=== PATIENT | male | born 1955 | race African-American/Black ===

== ENCOUNTER 2018-03-16 13:40 | Observation (INO) ==
[2018-03-16 16:25] LABS: BASOPHILS % (AUTO) 0.3 % (0.2-1.0); EOSINOPHILS # (AUTO) 0.1 x10^3/uL (0.0-0.2); EOSINOPHILS % (AUTO) 0.9 % (0.9-2.9); HEMATOCRIT 33.2 % (42.0-54.0); HEMOGLOBIN 10.7 g/dL (13.5-18.0); LYMPHOCYTES # (AUTO) 1.9 X10^3/uL (1.3-2.9); LYMPHOCYTES % (AUTO) 27.5 % (21.0-51.0); MEAN CORPUSCULAR HEMOGLOBIN 19.7 pg (27.0-34.0); MEAN CORPUSCULAR HGB CONC 32.3 g/dL (33.0-35.0); MEAN CORPUSCULAR VOLUME 60.9 fL (80.0-100.0); MEAN PLATELET VOLUME 8.8 fL (7.4-11.0); MONOCYTES # (AUTO) 0.6 x10^3/uL (0.3-0.8); MONOCYTES % (AUTO) 8.9 % (0.0-13.0); NEUTROPHILS # (AUTO) 4.2 x10^3/uL (2.2-4.8); NEUTROPHILS % (AUTO) 62.4 % (42.0-75.0); PLATELET COUNT 206 X10^3/uL (150.0-450.0); RED BLOOD COUNT 5.46 X10^6/uL (4.7-6.0); WHITE BLOOD COUNT 6.7 X10^3/uL (3.6-10.0)
--- NOTE | 2018-03-16 16:26 | DR.WEAKNES ---
HPI Time Seen Time Seen by Provider: 03/16/18 15:15 Primary Care Physician Primary Care Physician: LAW TAPIA HPI Comment HPI Comment: He was admitted to the [facility] on 03/12/18 with altered mental status. He was to be placed in a swing bed today but the family would rather have him here, as it is convenient to visit. Prior to 03/12/18, there was some degree of self independent but he needs care now according to his niece. Complaints Chief Complaint:: PTS NIECE STATES THAT PT JUST LEFT [facility] TODAY BECAUSE THEY WERE GETTING READY TO SWING HIM AND SHE BROUGHT HIM HERE BECAUSE SHE WANTED HIM TO "SWING HERE". SHE STATES PT IS STILL WEAK. Source History Provided: Family Member Mode of Arrival Mode of Arrival: Ambulatory Timing Onset of Chief Complaint: 03/12/18 Symptom Onset: Known Context Stroke Symptoms: Ataxia and Weakness of limb PMH PMH Past Medical History: Yes Past Medical History: CVA, Diabetes, GERD and Hyperthyroidism Past Surgical History: No Family History History of Family Medical Conditions: No Social History Does patient currently use any type of tobacco product: No Have you used tobacco products in the last 12 months: Yes Type of Tobacco Use: Cigarettes Does any household member use tobacco: No Alcohol Use: None Do you use any recreational Drugs:: No Lives With: Family Lives Where: Home infectious screening In the last 2 months have you had wt loss of >10#?: NO Have you had fever, night sweats or hemotysis?: No Have you traveled outside the country in the last 6 months?: No Isolation: Standard ROS Review of Systems Constitutional: Weakness Eyes: No Symptoms Reported ENTM: No Symptoms Reported Respiratoy: No Symptoms Reported Cardiovascular: No Symptoms Reported Gastrointestinal/Abdominal: No Symptoms Reported Genitourinary: No Symptoms Reported Neurological: No Symptoms Reported, Pre-existing Deficit, Weakness (right sided ) and Speech Problem Musculoskeletal: No Symptoms Reported Integumentary: No Symptoms Reported Hematologic/Lymphatic: No Symptoms Reported Endocrine: No Symptoms Reported Psychiatric: No Symptoms Reported All Other Systems: Reviewed and Negative PE Vital Signs Vitals: Temperature 98.2 F Pulse Rate 75 Respiratory Rate 20 Blood Pressure 126/71 O2 Sat by Pulse Oximetry 99 General Limitations: No Limitations General Appearance: Alert and In No Apparent Distress Head Head Exam: Normal Inspection, Atraumatic and Normocephalic Eyes Eye exam: Normal Appearance, PERRL and EOMI ENT ENT Exam: Normal Exam and Normal Oropharynx Neck Neck Exam: Normal Inspection, Full ROM and Trachea Midline Chest Chest Inspection: Normal Inspection and Symmetric Chest Wall Rise Respiratory Respiratory Exam: Normal Lung Sounds Bilat Cardiovascular Cardiovascular Exam: Regular Rate, Normal Rhythm, +S1 and +S2 Abdominal Exam Abdominal Exam: Normal Inspection, Normal Bowel Sounds and Soft Extremities Extremities Exam: Normal Inspection Back Back Exam: Normal Inspection Neurologic Neurological Exam: Alert and Other (Rt. hemiparesis ) Speech: Expressive Aphasia ROR Labs Reviewed Result Diagrams: 03/16/18 16:18 03/16/18 16:18 Laboratory: WBC 6.7 X10^3/uL (3.6-10.0) 03/16/18 16:18 RBC 5.46 X10^6/uL (4.7-6.0) 03/16/18 16:18 Hgb 10.7 g/dL (13.5-18.0) L 03/16/18 16:18 Hct 33.2 % (42.0-54.0) L 03/16/18 16:18 MCV 60.9 fL (80.0-100.0) L 03/16/18 16:18 MCH 19.7 pg (27.0-34.0) L 03/16/18 16:18 MCHC 32.3 g/dL (33.0-35.0) L 03/16/18 16:18 RDW 16.0 % (11.6-16.5) 03/16/18 16:18 Plt Count 206 X10^3/uL (150.0-450.0) 03/16/18 16:18 Plt Count Comment Adequate (ADEQUATE) 03/16/18 16:18 MPV 8.8 fL (7.4-11.0) 03/16/18 16:18 Neut % (Auto) 62.4 % (42.0-75.0) 03/16/18 16:18 Lymph % (Auto) 27.5 % (21.0-51.0) 03/16/18 16:18 [place] % (Auto) 8.9 % (0.0-13.0) 03/16/18 16:18 Eos % (Auto) 0.9 % (0.9-2.9) 03/16/18 16:18 Baso % (Auto) 0.3 % (0.2-1.0) 03/16/18 16:18 Neut # (Auto) 4.2 x10^3/uL (2.2-4.8) 03/16/18 16:18 Lymph # (Auto) 1.9 X10^3/uL (1.3-2.9) 03/16/18 16:18 [place] # (Auto) 0.6 x10^3/uL (0.3-0.8) 03/16/18 16:18 Eos # (Auto) 0.1 x10^3/uL (0.0-0.2) 03/16/18 16:18 Baso # (Auto) 0.0 X10^3/uL (0.0-0.1) 03/16/18 16:18 Absolute Nucleated RBC 0.1 /100WBC 03/16/18 16:18 Plt Morphology Comment Normal (NORMAL) 03/16/18 16:18 RBC Morphology Abnormal (NORMAL) 03/16/18 16:18 Hypochromasia 3+ A 03/16/18 16:18 Microcytosis 2+ A 03/16/18 16:18 Sodium 137 mmol/L (136-145) 03/16/18 16:18 Corrected Sodium 142 mmol/L (136-145) 03/16/18 16:18 Potassium 4.3 mmol/L (3.5-5.1) 03/16/18 16:18 Chloride 102 mmol/L (98-107) 03/16/18 16:18 Carbon Dioxide 30.0 mmol/L (21-32) 03/16/18 16:18 BUN 19 mg/dL (7-18) H 03/16/18 16:18 Creatinine 1.87 mg/dL (0.70-1.30) H 03/16/18 16:18 Est GFR (MDRD) Af Amer 47 (>60) L 03/16/18 16:18 Est GFR (MDRD) Non-Af 39 (>60) L 03/16/18 16:18 Glucose 320 mg/dL (65-99) H 03/16/18 16:18 Calcium 8.5 mg/dL (8.5-10.1) 03/16/18 16:18 Corrected Calcium 9.1 mg/dL (8.5-10.1) 03/16/18 16:18 Total Bilirubin 0.20 mg/dL (0.2-1.0) 03/16/18 16:18 AST 19 Units/L (15-37) 03/16/18 16:18 ALT 23 Units/L (12-78) 03/16/18 16:18 Alkaline Phosphatase 92 Units/L (46-116) 03/16/18 16:18 Total Protein 6.5 g/dL (6.4-8.2) 03/16/18 16:18 Albumin 3.2 g/dL (3.4-5.0) L 03/16/18 16:18 Globulin 3.3 g/dL (2.5-4.5) 03/16/18 16:18 Albumin/Globulin Ratio 1.0 Ratio (1.1-2.1) L 03/16/18 16:18 Diagnosis Discharge Problem: Weakness, CVA, old, alterations of sensations, Diabetes mellitus, HTN ( hypertension), Hyperlipidemia, mixed
[2018-03-16 16:36] LABS: ALBUMIN 3.2 g/dL (3.4-5.0); CALCIUM 8.5 mg/dL (8.5-10.1); COR CA(FOR HYPOALB) 9.1 mg/dL (8.5-10.1); CREATININE 1.87 mg/dL (0.70-1.30); TOTAL PROTEIN 6.5 g/dL (6.4-8.2)
[2018-03-16 16:52] LABS: HYPOCHROMASIA 3+; MICROCYTOSIS 2+; PLATELET MORPHOLOGY COMMENT NORMAL (NORMAL)
[2018-03-16] MEDS: COREG TAB 6.25 MG PO SCH (22:32)
[2018-03-16] MEDS: NICOTINE PATCH TD SCH (22:46)
[2018-03-16 22:55] VITALS: BMI 18.8
[2018-03-16] MEDS: HumuLIN R SUBCUT PRN (23:00)
[2018-03-16] MEDS ORDERED: MILK OF MAGNESIA PO PRN (23:04)
[2018-03-17 05:07] LABS: BASOPHILS % (AUTO) 0.3 % (0.2-1.0); EOSINOPHILS # (AUTO) 0.1 x10^3/uL (0.0-0.2); EOSINOPHILS % (AUTO) 1.2 % (0.9-2.9); HEMATOCRIT 31.5 % (42.0-54.0); HEMOGLOBIN 10.3 g/dL (13.5-18.0); LYMPHOCYTES % (AUTO) 33.7 % (21.0-51.0); MEAN CORPUSCULAR HEMOGLOBIN 19.7 pg (27.0-34.0); MEAN CORPUSCULAR HGB CONC 32.6 g/dL (33.0-35.0); MEAN CORPUSCULAR VOLUME 60.3 fL (80.0-100.0); MEAN PLATELET VOLUME 8.6 fL (7.4-11.0); MONOCYTES # (AUTO) 0.6 x10^3/uL (0.3-0.8); MONOCYTES % (AUTO) 9.5 % (0.0-13.0); NEUTROPHILS # (AUTO) 3.2 x10^3/uL (2.2-4.8); NEUTROPHILS % (AUTO) 55.3 % (42.0-75.0); PLATELET COUNT 201 X10^3/uL (150.0-450.0); RED BLOOD COUNT 5.23 X10^6/uL (4.7-6.0); RED CELL DISTRIBUTION WIDTH 16.2 % (11.6-16.5); WHITE BLOOD COUNT 5.8 X10^3/uL (3.6-10.0)
[2018-03-17 05:16] LABS: CALCIUM 8.9 mg/dL (8.5-10.1); CARBON DIOXIDE 33.8 mmol/L (21-32); COR CA(FOR HYPOALB) 9.7 mg/dL (8.5-10.1); CREATININE 1.73 mg/dL (0.70-1.30); TOTAL PROTEIN 6.2 g/dL (6.4-8.2)
[2018-03-17 05:36] LABS: HYPOCHROMASIA 3+; MICROCYTOSIS 2+; OVALOCYTES PRESENT; PLATELET MORPHOLOGY COMMENT NORMAL (NORMAL); TARGET CELLS PRESENT
[2018-03-17] MEDS ORDERED: ZESTRIL TAB 20 MG ONE ×2 (08:31→10:33)
[2018-03-17] MEDS ORDERED: ZESTRIL TAB 20 MG PO SCH (09:00)
[2018-03-17] MEDS: PLAVIX PO SCH (09:30)
[2018-03-17] MEDS: PROTONIX TAB 40 MG PO SCH (09:30)
[2018-03-17] MEDS: COREG TAB 6.25 MG PO SCH ×2 (09:30→20:42)
[2018-03-17] MEDS: COLACE CAP 100 MG PO SCH ×2 (09:30→20:42)
[2018-03-17] MEDS: NORVASC TAB 5 MG PO SCH (09:30)
[2018-03-17] MEDS: ASPIRIN 81 MG CHEWTAB PO SCH (09:30)
[2018-03-17] MEDS: NICOTINE PATCH TD SCH (09:31)
[2018-03-17] MEDS: ACTOS PO SCH (10:46)
[2018-03-17] MEDS: ZESTRIL TAB 20 MG PO SCH (10:46)
[2018-03-17] MEDS: HumuLIN R SUBCUT PRN ×3 (10:51→21:31)
[2018-03-17] MEDS ORDERED: SNACK - Diabetic Appropriate PO SCH (20:00)
[2018-03-18 05:11] LABS: BASOPHILS % (AUTO) 0.3 % (0.2-1.0); EOSINOPHILS # (AUTO) 0.1 x10^3/uL (0.0-0.2); EOSINOPHILS % (AUTO) 0.8 % (0.9-2.9); HEMATOCRIT 31.1 % (42.0-54.0); HEMOGLOBIN 10.1 g/dL (13.5-18.0); LYMPHOCYTES # (AUTO) 1.9 X10^3/uL (1.3-2.9); LYMPHOCYTES % (AUTO) 26.8 % (21.0-51.0); MEAN CORPUSCULAR HEMOGLOBIN 19.6 pg (27.0-34.0); MEAN CORPUSCULAR HGB CONC 32.6 g/dL (33.0-35.0); MEAN CORPUSCULAR VOLUME 60.1 fL (80.0-100.0); MEAN PLATELET VOLUME 8.9 fL (7.4-11.0); MONOCYTES # (AUTO) 0.5 x10^3/uL (0.3-0.8); MONOCYTES % (AUTO) 7.6 % (0.0-13.0); NEUTROPHILS # (AUTO) 4.6 x10^3/uL (2.2-4.8); NEUTROPHILS % (AUTO) 64.5 % (42.0-75.0); PLATELET COUNT 220 X10^3/uL (150.0-450.0); RED BLOOD COUNT 5.18 X10^6/uL (4.7-6.0); RED CELL DISTRIBUTION WIDTH 16.1 % (11.6-16.5); WHITE BLOOD COUNT 7.1 X10^3/uL (3.6-10.0)
[2018-03-18 05:24] LABS: ALANINE AMINOTRANSFERASE 35 Units/L (12-78); ALKALINE PHOSPHATASE 98 Units/L (46-116); ASPARTATE AMINO TRANSFERASE 33 Units/L (15-37); BLOOD UREA NITROGEN 21 mg/dL (7-18); CALCIUM 8.6 mg/dL (8.5-10.1); CARBON DIOXIDE 32.4 mmol/L (21-32); CHLORIDE 106 mmol/L (98-107); COR CA(FOR HYPOALB) 9.4 mg/dL (8.5-10.1); CREATININE 1.72 mg/dL (0.70-1.30); SODIUM 143 mmol/L (136-145); TOTAL PROTEIN 6.2 g/dL (6.4-8.2); eGFR NON BLACK RACES 43 (>60)
[2018-03-18 05:30] LABS: PLATELET MORPHOLOGY COMMENT NORMAL (NORMAL)
[2018-03-18 05:31] LABS: HYPOCHROMASIA 3+; MICROCYTOSIS 2+; OVALOCYTES PRESENT
[2018-03-18] MEDS ORDERED: ZESTRIL TAB 20 MG ONE (07:37)
[2018-03-18] MEDS: ASPIRIN 81 MG CHEWTAB PO SCH (08:32)
[2018-03-18] MEDS: ACTOS PO SCH (08:32)
[2018-03-18] MEDS: COLACE CAP 100 MG PO SCH (08:32)
[2018-03-18] MEDS: NICOTINE PATCH TD SCH (08:33)
[2018-03-18] MEDS: PLAVIX PO SCH (08:33)
[2018-03-18] MEDS: COREG TAB 6.25 MG PO SCH (08:33)
[2018-03-18] MEDS: NORVASC TAB 5 MG PO SCH (08:33)
[2018-03-18] MEDS: ZESTRIL TAB 20 MG PO SCH (08:34)
[2018-03-18] MEDS: PROTONIX TAB 40 MG PO SCH (08:34)
[2018-03-18] MEDS ORDERED: COREG TAB 6.25 MG PO SCH (10:00)
[2018-03-18 10:22] VITALS: BP 194/91
[2018-03-18] MEDS: HumuLIN R SUBCUT PRN (11:36)
== END 2018-03-18 11:00 | disposition home or self-care (01) ==
LOC: ER 13:40 → MED/SURG 13:40
PROVIDERS: ADMIT Obstetrics & Gynecology Obstetrics; ATTEND Obstetrics & Gynecology Obstetrics
DX: I63.8 Other cerebral infarction; R53.1 Weakness; R26.89 Other abnormalities of gait and mobility; Z72.0 Tobacco use; E11.65 Type 2 diabetes mellitus with hyperglycemia; R41.82 Altered mental status, unspecified; R20.9 Unspecified disturbances of skin sensation; E78.2 Mixed hyperlipidemia; R47.1 Dysarthria and anarthria; K21.9 Gastro-esophageal reflux disease without esophagitis
CPT/HCPCS: 36415; 80053; 85025; 92523; 96365; 97112; 97161; 97167; 99282; 99284; A4216; A4222; G0378; J1815

== ENCOUNTER 2018-03-18 11:30 | Inpatient (IN) ==
[2018-03-18] MEDS: HumuLIN R SUBCUT PRN ×2 (16:47→21:34)
[2018-03-18] MEDS ORDERED: SNACK - Diabetic Appropriate PO SCH (20:00)
[2018-03-18] MEDS ORDERED: NICOTINE PATCH TD ONE (20:56)
[2018-03-18] MEDS: COREG TAB 6.25 MG PO SCH (21:30)
[2018-03-18] MEDS: COLACE CAP 100 MG PO SCH (21:31)
[2018-03-18] MEDS: NICOTINE PATCH TD SCH (21:32)
[2018-03-18] MEDS: SNACK - Diabetic Appropriate PO SCH (21:34)
[2018-03-19 05:16] LABS: BASOPHILS % (AUTO) 0.2 % (0.2-1.0); EOSINOPHILS # (AUTO) 0.1 x10^3/uL (0.0-0.2); HEMOGLOBIN 9.4 g/dL (13.5-18.0); LYMPHOCYTES # (AUTO) 1.9 X10^3/uL (1.3-2.9); MEAN CORPUSCULAR HEMOGLOBIN 19.6 pg (27.0-34.0); MEAN CORPUSCULAR HGB CONC 32.5 g/dL (33.0-35.0); MEAN CORPUSCULAR VOLUME 60.3 fL (80.0-100.0); MEAN PLATELET VOLUME 8.8 fL (7.4-11.0); MONOCYTES # (AUTO) 0.5 x10^3/uL (0.3-0.8); MONOCYTES % (AUTO) 7.6 % (0.0-13.0); NEUTROPHILS % (AUTO) 62.2 % (42.0-75.0); PLATELET COUNT 203 X10^3/uL (150.0-450.0); RED BLOOD COUNT 4.81 X10^6/uL (4.7-6.0); RED CELL DISTRIBUTION WIDTH 16.3 % (11.6-16.5); WHITE BLOOD COUNT 6.4 X10^3/uL (3.6-10.0)
[2018-03-19 05:29] LABS: ALBUMIN 2.9 g/dL (3.4-5.0); CALCIUM 8.5 mg/dL (8.5-10.1); CARBON DIOXIDE 30.9 mmol/L (21-32); COR CA(FOR HYPOALB) 9.4 mg/dL (8.5-10.1); CREATININE 1.88 mg/dL (0.70-1.30); TOTAL PROTEIN 5.9 g/dL (6.4-8.2)
[2018-03-19] MEDS: HumuLIN R SUBCUT PRN ×3 (05:44→22:16)
[2018-03-19 06:45] LABS: ANISOCYTOSIS 1+; HYPOCHROMASIA 2+; PLATELET MORPHOLOGY COMMENT NORMAL (NORMAL); POIKILOCYTOSIS 1+
[2018-03-19] MEDS: ACTOS PO SCH (08:00)
[2018-03-19] MEDS: PLAVIX PO SCH (08:00)
[2018-03-19] MEDS: ASPIRIN 81 MG CHEWTAB PO SCH (08:00)
[2018-03-19] MEDS: NICOTINE PATCH TD SCH (08:00)
[2018-03-19] MEDS: ZESTRIL TAB 20 MG PO SCH (08:00)
[2018-03-19] MEDS: PROTONIX TAB 40 MG PO SCH (08:00)
[2018-03-19] MEDS: COREG TAB 6.25 MG PO SCH ×2 (08:00→22:13)
[2018-03-19] MEDS: NORVASC TAB 5 MG PO SCH (08:00)
[2018-03-19] MEDS ORDERED: ZESTRIL TAB 20 MG ONE (08:00)
[2018-03-19] MEDS: COLACE CAP 100 MG PO SCH ×2 (08:00→22:15)
[2018-03-19] MEDS ORDERED: INVOKANA PO SCH ×2 (09:00→09:15)
[2018-03-19] MEDS: MILK OF MAGNESIA PO PRN (22:13)
[2018-03-19] MEDS: SNACK - Diabetic Appropriate PO SCH (22:15)
[2018-03-20 05:46] LABS: BASOPHILS % (AUTO) 0.2 % (0.2-1.0); EOSINOPHILS # (AUTO) 0.1 x10^3/uL (0.0-0.2); EOSINOPHILS % (AUTO) 0.8 % (0.9-2.9); HEMATOCRIT 29.3 % (42.0-54.0); HEMOGLOBIN 9.6 g/dL (13.5-18.0); LYMPHOCYTES # (AUTO) 1.8 X10^3/uL (1.3-2.9); LYMPHOCYTES % (AUTO) 21.6 % (21.0-51.0); MEAN CORPUSCULAR HEMOGLOBIN 19.6 pg (27.0-34.0); MEAN CORPUSCULAR HGB CONC 32.8 g/dL (33.0-35.0); MEAN CORPUSCULAR VOLUME 59.9 fL (80.0-100.0); MEAN PLATELET VOLUME 8.9 fL (7.4-11.0); MONOCYTES # (AUTO) 0.7 x10^3/uL (0.3-0.8); MONOCYTES % (AUTO) 7.9 % (0.0-13.0); NEUTROPHILS # (AUTO) 5.8 x10^3/uL (2.2-4.8); NEUTROPHILS % (AUTO) 69.5 % (42.0-75.0); PLATELET COUNT 209 X10^3/uL (150.0-450.0); RED BLOOD COUNT 4.89 X10^6/uL (4.7-6.0); RED CELL DISTRIBUTION WIDTH 16.2 % (11.6-16.5); WHITE BLOOD COUNT 8.3 X10^3/uL (3.6-10.0)
[2018-03-20] MEDS: HumuLIN R SUBCUT PRN ×3 (05:56→21:24)
[2018-03-20 06:15] LABS: ALBUMIN 2.8 g/dL (3.4-5.0); CALCIUM 8.4 mg/dL (8.5-10.1); CARBON DIOXIDE 33.4 mmol/L (21-32); COR CA(FOR HYPOALB) 9.4 mg/dL (8.5-10.1); CREATININE 1.84 mg/dL (0.70-1.30)
[2018-03-20 06:21] LABS: HYPOCHROMASIA 3+; MICROCYTOSIS 3+; PLATELET MORPHOLOGY COMMENT NORMAL (NORMAL)
[2018-03-20] MEDS ORDERED: ZESTRIL TAB 20 MG ONE (07:53)
[2018-03-20] MEDS: ACTOS PO SCH (08:42)
[2018-03-20] MEDS: COLACE CAP 100 MG PO SCH ×2 (08:42→21:26)
[2018-03-20] MEDS: ZESTRIL TAB 20 MG PO SCH (08:43)
[2018-03-20] MEDS: PROTONIX TAB 40 MG PO SCH (08:43)
[2018-03-20] MEDS: ASPIRIN 81 MG CHEWTAB PO SCH (08:44)
[2018-03-20] MEDS: NORVASC TAB 5 MG PO SCH (08:45)
[2018-03-20] MEDS: COREG TAB 6.25 MG PO SCH ×2 (08:45→21:26)
[2018-03-20] MEDS: INVOKANA PO SCH (08:49)
[2018-03-20] MEDS: NICOTINE PATCH TD SCH (08:50)
[2018-03-20] MEDS: PLAVIX PO SCH (08:52)
[2018-03-20] MEDS: SNACK - Diabetic Appropriate PO SCH (20:29)
[2018-03-20] MEDS: MILK OF MAGNESIA PO PRN (21:24)
[2018-03-21] MEDS: HumuLIN R SUBCUT PRN ×3 (06:13→17:21)
[2018-03-21] MEDS ORDERED: ZESTRIL TAB 20 MG ONE (07:36)
[2018-03-21] MEDS: COREG TAB 6.25 MG PO SCH ×2 (08:56→21:33)
[2018-03-21] MEDS: PROTONIX TAB 40 MG PO SCH (08:56)
[2018-03-21] MEDS: ASPIRIN 81 MG CHEWTAB PO SCH (08:57)
[2018-03-21] MEDS: ZESTRIL TAB 20 MG PO SCH (08:57)
[2018-03-21] MEDS: NORVASC TAB 5 MG PO SCH (08:57)
[2018-03-21] MEDS: COLACE CAP 100 MG PO SCH ×2 (08:57→21:33)
[2018-03-21] MEDS: ACTOS PO SCH (08:57)
[2018-03-21] MEDS: PLAVIX PO SCH (08:58)
[2018-03-21] MEDS: NICOTINE PATCH TD SCH (09:01)
[2018-03-21] MEDS: INVOKANA PO SCH (09:02)
--- NOTE | 2018-03-21 19:51 | RAD ---
HISTORY: Fall, right hip pain Study: Two-view right hip Comparison: No priors Findings: A single frontal view of the pelvis demonstrates the pelvic ring to be intact. No evidence for acute cortical disruption or dislocation of the hip can be observed. Frog leg views of the hip fails to d emonstrate evidence for fracture or significant joint abnormality. Impression: 1. Negative exam. Reported By:
[2018-03-21] MEDS: SNACK - Diabetic Appropriate PO SCH (21:33)
[2018-03-22] MEDS: HumuLIN R SUBCUT PRN ×3 (05:57→20:41)
[2018-03-22] MEDS ORDERED: ZESTRIL TAB 20 MG ONE (07:51)
[2018-03-22] MEDS: ACTOS PO SCH (09:00)
[2018-03-22] MEDS: COLACE CAP 100 MG PO SCH ×2 (09:01→20:41)
[2018-03-22] MEDS: ASPIRIN 81 MG CHEWTAB PO SCH (09:01)
[2018-03-22] MEDS: INVOKANA PO SCH (09:01)
[2018-03-22] MEDS: COREG TAB 6.25 MG PO SCH ×2 (09:01→20:40)
[2018-03-22] MEDS: NICOTINE PATCH TD SCH (09:01)
[2018-03-22] MEDS: NORVASC TAB 5 MG PO SCH (09:02)
[2018-03-22] MEDS: ZESTRIL TAB 20 MG PO SCH (09:03)
[2018-03-22] MEDS: PROTONIX TAB 40 MG PO SCH (09:03)
[2018-03-22] MEDS: PLAVIX PO SCH (09:03)
[2018-03-22] MEDS: SNACK - Diabetic Appropriate PO SCH (20:41)
[2018-03-23 05:31] LABS: BASOPHILS % (AUTO) 0.3 % (0.2-1.0); EOSINOPHILS % (AUTO) 0.3 % (0.9-2.9); HEMATOCRIT 28.4 % (42.0-54.0); HEMOGLOBIN 9.3 g/dL (13.5-18.0); LYMPHOCYTES # (AUTO) 1.6 X10^3/uL (1.3-2.9); LYMPHOCYTES % (AUTO) 15.8 % (21.0-51.0); MEAN CORPUSCULAR HEMOGLOBIN 19.6 pg (27.0-34.0); MEAN CORPUSCULAR HGB CONC 32.8 g/dL (33.0-35.0); MEAN CORPUSCULAR VOLUME 59.7 fL (80.0-100.0); MONOCYTES # (AUTO) 0.5 x10^3/uL (0.3-0.8); MONOCYTES % (AUTO) 5.3 % (0.0-13.0); NEUTROPHILS % (AUTO) 78.3 % (42.0-75.0); PLATELET COUNT 204 X10^3/uL (150.0-450.0); RED BLOOD COUNT 4.76 X10^6/uL (4.7-6.0); RED CELL DISTRIBUTION WIDTH 16.2 % (11.6-16.5); WHITE BLOOD COUNT 10.2 X10^3/uL (3.6-10.0)
[2018-03-23 05:38] LABS: ALBUMIN 2.7 g/dL (3.4-5.0); CALCIUM 8.9 mg/dL (8.5-10.1); CARBON DIOXIDE 24.7 mmol/L (21-32); COR CA(FOR HYPOALB) 9.9 mg/dL (8.5-10.1); CREATININE 2.55 mg/dL (0.70-1.30); TOTAL PROTEIN 6.5 g/dL (6.4-8.2)
[2018-03-23 05:53] LABS: HYPOCHROMASIA 2+; MICROCYTOSIS 3+; PLATELET MORPHOLOGY COMMENT NORMAL (NORMAL)
[2018-03-23 05:54] LABS: OVALOCYTES PRESENT; POIKILOCYTOSIS 1+
[2018-03-23] MEDS: HumuLIN R SUBCUT PRN ×3 (06:38→17:08)
[2018-03-23] MEDS ORDERED: ZESTRIL TAB 20 MG ONE (08:23)
[2018-03-23] MEDS: ZESTRIL TAB 20 MG PO SCH (09:44)
[2018-03-23] MEDS: ACTOS PO SCH (09:44)
[2018-03-23] MEDS: COREG TAB 6.25 MG PO SCH ×2 (09:44→21:07)
[2018-03-23] MEDS: COLACE CAP 100 MG PO SCH ×2 (09:44→21:07)
[2018-03-23] MEDS: PROTONIX TAB 40 MG PO SCH (09:45)
[2018-03-23] MEDS: PLAVIX PO SCH (09:45)
[2018-03-23] MEDS: NORVASC TAB 5 MG PO SCH (09:45)
[2018-03-23] MEDS: NICOTINE PATCH TD SCH (09:45)
[2018-03-23] MEDS: ASPIRIN 81 MG CHEWTAB PO SCH (09:45)
[2018-03-23] MEDS: INVOKANA PO SCH (09:50)
[2018-03-23] MEDS ORDERED: NS 1000 ML 1,000 ML IV ONE (13:59)
[2018-03-23] MEDS: SNACK - Diabetic Appropriate PO SCH (21:07)
[2018-03-24 05:16] LABS: CALCIUM 8.9 mg/dL (8.5-10.1); CARBON DIOXIDE 23.8 mmol/L (21-32); CREATININE 2.37 mg/dL (0.70-1.30)
[2018-03-24] MEDS ORDERED: ZESTRIL TAB 20 MG ONE (08:17)
[2018-03-24] MEDS: NORVASC TAB 5 MG PO SCH (08:20)
[2018-03-24] MEDS: ACTOS PO SCH (08:20)
[2018-03-24] MEDS: ASPIRIN 81 MG CHEWTAB PO SCH (08:20)
[2018-03-24] MEDS: COLACE CAP 100 MG PO SCH ×2 (08:20→20:18)
[2018-03-24] MEDS: PROTONIX TAB 40 MG PO SCH (08:21)
[2018-03-24] MEDS: NICOTINE PATCH TD SCH (08:21)
[2018-03-24] MEDS: INVOKANA PO SCH (08:21)
[2018-03-24] MEDS: ZESTRIL TAB 20 MG PO SCH (08:21)
[2018-03-24] MEDS: COREG TAB 6.25 MG PO SCH ×2 (08:21→20:18)
[2018-03-24] MEDS: PLAVIX PO SCH (08:21)
[2018-03-24] MEDS ORDERED: LR 1000 ML IV 1,000 ML IV ONE (09:14)
[2018-03-24] MEDS: HumuLIN R SUBCUT PRN ×2 (12:15→17:09)
[2018-03-24] MEDS: SNACK - Diabetic Appropriate PO SCH (20:18)
[2018-03-25 05:39] LABS: ALBUMIN 2.5 g/dL (3.4-5.0); CALCIUM 8.7 mg/dL (8.5-10.1); CARBON DIOXIDE 25.7 mmol/L (21-32); COR CA(FOR HYPOALB) 9.9 mg/dL (8.5-10.1); CREATININE 2.31 mg/dL (0.70-1.30); TOTAL PROTEIN 6.7 g/dL (6.4-8.2)
[2018-03-25] MEDS ORDERED: ZESTRIL TAB 20 MG ONE (08:08)
[2018-03-25] MEDS: COLACE CAP 100 MG PO SCH ×2 (08:20→20:05)
[2018-03-25] MEDS: ACTOS PO SCH (08:20)
[2018-03-25] MEDS: NORVASC TAB 5 MG PO SCH (08:20)
[2018-03-25] MEDS: COREG TAB 6.25 MG PO SCH ×2 (08:20→20:05)
[2018-03-25] MEDS: PROTONIX TAB 40 MG PO SCH (08:21)
[2018-03-25] MEDS: NICOTINE PATCH TD SCH (08:21)
[2018-03-25] MEDS: PLAVIX PO SCH (08:21)
[2018-03-25] MEDS: ZESTRIL TAB 20 MG PO SCH (08:21)
[2018-03-25] MEDS: ASPIRIN 81 MG CHEWTAB PO SCH (08:21)
[2018-03-25] MEDS: JANUVIA PO SCH (10:46)
[2018-03-25] MEDS: HumuLIN R SUBCUT PRN ×3 (12:02→20:05)
[2018-03-25] MEDS: SNACK - Diabetic Appropriate PO SCH (20:04)
[2018-03-26 05:52] LABS: ALBUMIN 2.7 g/dL (3.4-5.0); CALCIUM 8.8 mg/dL (8.5-10.1); COR CA(FOR HYPOALB) 9.8 mg/dL (8.5-10.1); CREATININE 2.14 mg/dL (0.70-1.30); TOTAL PROTEIN 6.4 g/dL (6.4-8.2)
[2018-03-26] MEDS ORDERED: ZESTRIL TAB 20 MG ONE (08:43)
[2018-03-26] MEDS: COLACE CAP 100 MG PO SCH ×2 (08:56→20:26)
[2018-03-26] MEDS: NORVASC TAB 5 MG PO SCH (08:56)
[2018-03-26] MEDS: PROTONIX TAB 40 MG PO SCH (08:56)
[2018-03-26] MEDS: ZESTRIL TAB 20 MG PO SCH (08:57)
[2018-03-26] MEDS: JANUVIA PO SCH (08:57)
[2018-03-26] MEDS: NICOTINE PATCH TD SCH (08:57)
[2018-03-26] MEDS: COREG TAB 6.25 MG PO SCH ×2 (08:57→20:26)
[2018-03-26] MEDS: ASPIRIN 81 MG CHEWTAB PO SCH (08:57)
[2018-03-26] MEDS: ACTOS PO SCH (08:57)
[2018-03-26] MEDS: PLAVIX PO SCH (08:57)
[2018-03-26] MEDS: HumuLIN R SUBCUT PRN ×3 (11:31→20:26)
[2018-03-26] MEDS: SNACK - Diabetic Appropriate PO SCH (20:25)
[2018-03-27 04:48] LABS: ALBUMIN 2.7 g/dL (3.4-5.0); CALCIUM 8.5 mg/dL (8.5-10.1); CARBON DIOXIDE 28.7 mmol/L (21-32); COR CA(FOR HYPOALB) 9.5 mg/dL (8.5-10.1); CREATININE 2.19 mg/dL (0.70-1.30); TOTAL PROTEIN 6.1 g/dL (6.4-8.2)
[2018-03-27] MEDS: HumuLIN R SUBCUT PRN ×4 (05:48→21:09)
[2018-03-27] MEDS ORDERED: ZESTRIL TAB 20 MG ONE (09:42)
[2018-03-27] MEDS: ZESTRIL TAB 20 MG PO SCH (10:17)
[2018-03-27] MEDS: ASPIRIN 81 MG CHEWTAB PO SCH (10:18)
[2018-03-27] MEDS: PLAVIX PO SCH (10:18)
[2018-03-27] MEDS: COLACE CAP 100 MG PO SCH ×2 (10:18→20:24)
[2018-03-27] MEDS: COREG TAB 6.25 MG PO SCH ×2 (10:18→20:25)
[2018-03-27] MEDS: NORVASC TAB 5 MG PO SCH (10:18)
[2018-03-27] MEDS: JANUVIA PO SCH (10:18)
[2018-03-27] MEDS: PROTONIX TAB 40 MG PO SCH (10:18)
[2018-03-27] MEDS: ACTOS PO SCH (10:18)
[2018-03-27] MEDS: NICOTINE PATCH TD SCH (10:18)
[2018-03-27] MEDS: SNACK - Diabetic Appropriate PO SCH (20:12)
[2018-03-28] MEDS: HumuLIN R SUBCUT PRN ×2 (06:20→12:30)
[2018-03-28] MEDS ORDERED: ZESTRIL TAB 20 MG ONE (08:47)
[2018-03-28] MEDS: COLACE CAP 100 MG PO SCH ×2 (09:34→21:43)
[2018-03-28] MEDS: ASPIRIN 81 MG CHEWTAB PO SCH (09:34)
[2018-03-28] MEDS: ACTOS PO SCH (09:34)
[2018-03-28] MEDS: NICOTINE PATCH TD SCH (09:35)
[2018-03-28] MEDS: JANUVIA PO SCH (09:35)
[2018-03-28] MEDS: COREG TAB 6.25 MG PO SCH ×2 (09:35→22:15)
[2018-03-28] MEDS: ZESTRIL TAB 20 MG PO SCH (09:36)
[2018-03-28] MEDS: NORVASC TAB 5 MG PO SCH ×2 (09:36→14:19)
[2018-03-28] MEDS: PROTONIX TAB 40 MG PO SCH (09:36)
[2018-03-28] MEDS: PLAVIX PO SCH (09:36)
[2018-03-28] MEDS: PATIENT'S HOME MEDICATION (Precose 100 MG) PO SCH ×2 (14:19→18:20)
[2018-03-28] MEDS: SNACK - Diabetic Appropriate PO SCH (21:41)
[2018-03-29] MEDS: PATIENT'S HOME MEDICATION (Precose 100 MG) PO SCH ×3 (05:37→16:57)
[2018-03-29] MEDS ORDERED: ZESTRIL TAB 20 MG ONE ×2 (08:16→08:30)
[2018-03-29] MEDS: COREG TAB 6.25 MG PO SCH ×2 (08:21→20:06)
[2018-03-29] MEDS: PROTONIX TAB 40 MG PO SCH (08:21)
[2018-03-29] MEDS: ASPIRIN 81 MG CHEWTAB PO SCH (08:21)
[2018-03-29] MEDS: ACTOS PO SCH (08:21)
[2018-03-29] MEDS: ZESTRIL TAB 20 MG PO SCH (08:22)
[2018-03-29] MEDS: COLACE CAP 100 MG PO SCH ×2 (08:22→20:06)
[2018-03-29] MEDS: JANUVIA PO SCH (08:22)
[2018-03-29] MEDS: NORVASC TAB 5 MG PO SCH (08:22)
[2018-03-29] MEDS: NICOTINE PATCH TD SCH (08:23)
[2018-03-29] MEDS: PLAVIX PO SCH (08:23)
[2018-03-29] MEDS: HumuLIN R SUBCUT PRN ×2 (11:48→17:34)
[2018-03-29] MEDS: SNACK - Diabetic Appropriate PO SCH (20:06)
[2018-03-30] MEDS: PATIENT'S HOME MEDICATION (Precose 100 MG) PO SCH (05:31)
[2018-03-30] MEDS ORDERED: ZESTRIL TAB 20 MG ONE (08:29)
[2018-03-30] MEDS: NICOTINE PATCH TD SCH (10:34)
[2018-03-30] MEDS: PROTONIX TAB 40 MG PO SCH (10:35)
[2018-03-30] MEDS: NORVASC TAB 5 MG PO SCH (10:35)
[2018-03-30] MEDS: COREG TAB 6.25 MG PO SCH ×2 (10:35→20:38)
[2018-03-30] MEDS: ACTOS PO SCH (10:36)
[2018-03-30] MEDS: ASPIRIN 81 MG CHEWTAB PO SCH (10:36)
[2018-03-30] MEDS: ZESTRIL TAB 20 MG PO SCH (10:36)
[2018-03-30] MEDS: COLACE CAP 100 MG PO SCH ×2 (10:36→20:38)
[2018-03-30] MEDS: PLAVIX PO SCH (10:37)
[2018-03-30] MEDS: JANUVIA PO SCH (10:37)
[2018-03-30] MEDS: HumuLIN R SUBCUT PRN ×3 (12:15→20:39)
[2018-03-30] MEDS: SNACK - Diabetic Appropriate PO SCH (20:38)
[2018-03-30] MEDS: MILK OF MAGNESIA PO PRN (20:38)
[2018-03-31] MEDS ORDERED: ZESTRIL TAB 20 MG ONE (09:34)
[2018-03-31] MEDS: ACTOS PO SCH (09:51)
[2018-03-31] MEDS: NICOTINE PATCH TD SCH (09:52)
[2018-03-31] MEDS: ASPIRIN 81 MG CHEWTAB PO SCH (09:52)
[2018-03-31] MEDS: JANUVIA PO SCH (09:52)
[2018-03-31] MEDS: COREG TAB 6.25 MG PO SCH ×2 (09:52→20:15)
[2018-03-31] MEDS: PROTONIX TAB 40 MG PO SCH (09:52)
[2018-03-31] MEDS: COLACE CAP 100 MG PO SCH ×2 (09:52→20:13)
[2018-03-31] MEDS: NORVASC TAB 5 MG PO SCH (09:53)
[2018-03-31] MEDS: ZESTRIL TAB 20 MG PO SCH (09:53)
[2018-03-31] MEDS: PLAVIX PO SCH (10:25)
[2018-03-31] MEDS: HumuLIN R SUBCUT PRN ×3 (11:54→20:14)
[2018-04-01] MEDS: SNACK - Diabetic Appropriate PO SCH (05:15)
[2018-04-01] MEDS: HumuLIN R SUBCUT PRN ×2 (05:57→11:37)
[2018-04-01] MEDS ORDERED: ZESTRIL TAB 20 MG ONE (08:57)
[2018-04-01] MEDS: NICOTINE PATCH TD SCH (08:59)
[2018-04-01] MEDS: ACTOS PO SCH (09:00)
[2018-04-01] MEDS: COREG TAB 6.25 MG PO SCH (09:01)
[2018-04-01] MEDS: COLACE CAP 100 MG PO SCH (09:01)
[2018-04-01] MEDS: ASPIRIN 81 MG CHEWTAB PO SCH (09:01)
[2018-04-01] MEDS: JANUVIA PO SCH (09:02)
[2018-04-01] MEDS: PLAVIX PO SCH (09:03)
[2018-04-01] MEDS: ZESTRIL TAB 20 MG PO SCH (09:03)
[2018-04-01] MEDS: PROTONIX TAB 40 MG PO SCH (09:03)
[2018-04-01] MEDS: NORVASC TAB 5 MG PO SCH (09:03)
[2018-04-01 10:25] VITALS: BP 149/86
== END 2018-04-01 11:53 | DRG 949 ==
LOC: MED/SURG 11:30
PROVIDERS: ADMIT Obstetrics & Gynecology Obstetrics; ATTEND Obstetrics & Gynecology Obstetrics
DX: E78.2 Mixed hyperlipidemia; R20.9 Unspecified disturbances of skin sensation; Z51.89 Encounter for other specified aftercare; K21.9 Gastro-esophageal reflux disease without esophagitis; I10 Essential (primary) hypertension; R41.82 Altered mental status, unspecified; R53.1 Weakness; Z72.0 Tobacco use; E11.65 Type 2 diabetes mellitus with hyperglycemia; R47.1 Dysarthria and anarthria; R26.89 Other abnormalities of gait and mobility; I63.8 Other cerebral infarction; M25.551 Pain in right hip
CPT/HCPCS: 36415; 73501; 80048; 80053; 85025; 92507; 92523; 97110; 97112; 97116; 97161; 97167; 97530; 97535; 97760; A4216; A4222; J1815; J7030; J7120

== ENCOUNTER 2018-05-28 11:17 | Inpatient (IN) ==
[2018-05-28] MEDS ORDERED: NS 1000 ML 1,000 ML ONE ×3 (11:35→18:01)
[2018-05-28] MEDS ORDERED: NS 1000 ML 1,000 ML IV ONE ×3 (11:58→12:41)
--- NOTE | 2018-05-28 11:59 | DR.HYPOGLY ---
HPI Time Seen Time Seen by Provider: 05/28/18 11:44 HPI Comment HPI Comment: HERE FROM RETIREMENT WITH CONFUSION, FREQUENT FALLS AND ELEVATED BLOOD GLUCOSE. Complaint Chief Complaint Doctors Comments: RETIREMENT AT THIS FACILITY IS HERE WITH ELEVATED BLOOD GLUCOSE AND CONFUSION. Nurses notes reviewed Nurses Notes Review: Yes Source History Provided: Care Home Mode of Arrival Mode of Arrival: Stretcher Timing Came on: Suddenly Duration Duration: Since Onset Duration: Hours Context [place]: Confused Symptoms: Generalized weakness History of: Diabetes PMH PMH Past Surgical History: No Family History Family Medical History: Diabetes Mellitus and Hypertension Social History Do you use any recreational Drugs:: No ROS Review of Systems Constitutional: Weakness and Fatigue Eyes: Eye Pain; negative Discharge ENTM: No Symptoms Reported Respiratoy: No Symptoms Reported Cardiovascular: No Symptoms Reported Gastrointestinal/Abdominal: Nausea Genitourinary: No Symptoms Reported Neurological: Weakness Musculoskeletal: Muscle Pain Integumentary: Dryness Hematologic/Lymphatic: No Symptoms Reported Endocrine: Increased Thirst and Increased Urine Psychiatric: No Symptoms Reported All Other Systems: Reviewed and Negative PE Vital Signs Vitals: Temperature 98.2 F Pulse Rate [Right Brachial] 80 Pulse Rate 70 Respiratory Rate 18 Blood Pressure [Right Arm] 177/86 Blood Pressure [Left Arm] 99/56 Blood Pressure 125/64 O2 Sat by Pulse Oximetry 100 General Limitations: Altered Mental Status General Appearance: Alert and In No Apparent Distress Eyes Eye exam: negative Conjunctival Injection Pupils: Regular, Round: Bilateral and Reactive: Bilateral ENT ENT Exam: Normal External Ear Exam Nose Exam: Normal Nose Exam Mouth Exam: Normal Inspection Throat Exam: Tonsillar Exudate; negative Tonsillar Erythema Neck Neck Exam: Trachea Midline; negative Tenderness and Meningismus Chest Chest Inspection: Symmetric Chest Wall Rise Respiratory Respiratory Exam: Normal Lung Sounds Bilat Respiratory Exam: Bilateral: Rhonchi and Lower: Rhonchi Cardiovascular Cardiovascular Exam: Regular Rate and Normal Rhythm Abdominal Exam Abdominal Exam: Normal Bowel Sounds and Soft; negative Tenderness Extremities Extremities Exam: Normal Inspection Back Back Exam: Normal Inspection Neurologic Neurological Exam: Alert Cranial Nerve Exam: Gag reflex (XI): Normal Psychiatric Psychiatric Exam: Normal Affect and Normal Mood Skin Skin Exam: Dry MDM Differential diagnosis Differential diagnosis: Sepsis (HYPERGLYCEMIA, DEHYDRATION, ) COURSE Treatment Treatment: SSEE ORDERS Education/Counseling Education/Counseling: Patient Educated On: Diagnosis ROR Labs Reviewed Laboratory Results Reviewed?: Yes Result Diagrams: 06/01/18 05:20 06/01/18 05:20 Laboratory: WBC 5.6 X10^3/uL (3.6-10.0) 06/01/18 05:20 RBC 4.81 X10^6/uL (4.7-6.0) 06/01/18 05:20 Hgb 9.9 g/dL (13.5-18.0) L 06/01/18 05:20 Hct 30.0 % (42.0-54.0) L 06/01/18 05:20 MCV 62.4 fL (80.0-100.0) L 06/01/18 05:20 MCH 20.6 pg (27.0-34.0) L 06/01/18 05:20 MCHC 33.0 g/dL (33.0-35.0) 06/01/18 05:20 RDW 21.1 % (11.6-16.5) H 06/01/18 05:20 Plt Count 118 X10^3/uL (150.0-450.0) L 06/01/18 05:20 Plt Count Comment Decreased (ADEQUATE) 06/01/18 05:20 MPV 8.6 fL (7.4-11.0) 06/01/18 05:20 Neut % (Auto) 69.0 % (42.0-75.0) 06/01/18 05:20 Lymph % (Auto) 23.5 % (21.0-51.0) 06/01/18 05:20 [place] % (Auto) 6.4 % (0.0-13.0) 06/01/18 05:20 Eos % (Auto) 0.9 % (0.9-2.9) 06/01/18 05:20 Baso % (Auto) 0.2 % (0.2-1.0) 06/01/18 05:20 Neut # (Auto) 3.8 x10^3/uL (2.2-4.8) 06/01/18 05:20 Lymph # (Auto) 1.3 X10^3/uL (1.3-2.9) 06/01/18 05:20 [place] # (Auto) 0.4 x10^3/uL (0.3-0.8) 06/01/18 05:20 Eos # (Auto) 0.1 x10^3/uL (0.0-0.2) 06/01/18 05:20 Baso # (Auto) 0.0 X10^3/uL (0.0-0.1) 06/01/18 05:20 Absolute Nucleated RBC 0.5 /100WBC 06/01/18 05:20 Plt Morphology Comment Normal (NORMAL) 06/01/18 05:20 RBC Morphology Abnormal (NORMAL) 06/01/18 05:20 Hypochromasia 2+ A 06/01/18 05:20 Poikilocytosis 1+ A 06/01/18 05:20 Anisocytosis 1+ A 06/01/18 05:20 Microcytosis 2+ A 06/01/18 05:20 Ovalocytes Present 06/01/18 05:20 Sample Site Lb 05/28/18 14:13 ABG pH 7.350 (7.35-7.45) 05/28/18 14:13 ABG pCO2 39.0 mmHg (35.0-45.0) 05/28/18 14:13 ABG pO2 108.0 mmHg (80.0-100.0) H 05/28/18 14:13 ABG HCO3 21.5 mmol/L (22-26) L 05/28/18 14:13 ABG O2 Saturation 98.0 % (90-100) 05/28/18 14:13 ABG Base Excess -3.8 mmol/L (-2.0-2.0) L 05/28/18 14:13 [place] Test N/a 05/28/18 14:13 A-a Gradient -7.0 mmHg 05/28/18 14:13 FiO2 21.0 05/28/18 14:13 Blood Gas Comments Pt cruz well cdn 05/28/18 14:13 Sodium 140 mmol/L (136-145) 06/01/18 05:20 Corrected Sodium 142 mmol/L (136-145) 06/01/18 05:20 Potassium 3.9 mmol/L (3.5-5.1) 06/01/18 05:20 Chloride 107 mmol/L (98-107) 06/01/18 05:20 Carbon Dioxide 24.2 mmol/L (21-32) 06/01/18 05:20 BUN 23 mg/dL (7-18) H 06/01/18 05:20 Creatinine 1.58 mg/dL (0.70-1.30) H 06/01/18 05:20 Est GFR (MDRD) Af Amer 58 (>60) L 06/01/18 05:20 Est GFR (MDRD) Non-Af 48 (>60) L 06/01/18 05:20 Glucose 195 mg/dL (65-99) H 06/01/18 05:20 POC Glucose (mg/dL) 198 mg/dL (65-99) H 06/01/18 05:32 Hemoglobin A1c > 16.0 % 05/28/18 14:50 Calcium 7.9 mg/dL (8.5-10.1) L 06/01/18 05:20 Corrected Calcium 9.1 mg/dL (8.5-10.1) 05/31/18 04:37 Phosphorus 6.4 mg/dL (2.6-4.7) H 05/28/18 14:50 Magnesium 3.4 mg/dL (1.7-2.9) H 05/28/18 14:50 Iron 96 ug/dL (50-175) 05/30/18 04:54 Transferrin 159 mg/dL (202-364) L 05/30/18 04:54 Ferritin 604 ng/mL (26-388) H 05/30/18 04:54 Total Bilirubin 0.20 mg/dL (0.2-1.0) 05/31/18 04:37 AST 31 Units/L (15-37) 05/31/18 04:37 ALT 26 Units/L (12-78) 05/31/18 04:37 Alkaline Phosphatase 90 Units/L (46-116) 05/31/18 04:37 Total Protein 5.0 g/dL (6.4-8.2) L 05/31/18 04:37 Albumin 2.1 g/dL (3.4-5.0) L 05/31/18 04:37 Globulin 2.9 g/dL (2.5-4.5) 05/31/18 04:37 Albumin/Globulin Ratio 0.7 Ratio (1.1-2.1) L 05/31/18 04:37 Amylase 60 Units/L (25-115) 05/28/18 14:50 Lipase 227 Units/L (73-393) 05/28/18 14:50 Vitamin B12 1080 pg/mL (193-986) H 05/30/18 04:54 Folate 8.5 ng/mL (>8.6) L 05/30/18 04:54 Specimen Type Catherized urine 05/28/18 14:46 Urine Color Yellow (YELLOW) 05/28/18 14:46 Urine Appearance Clear (CLEAR) 05/28/18 14:46 Urine pH 5.0 (5.0 - 8.0) 05/28/18 14:46 Ur Specific [place] 1.010 (1.000-1.030) 05/28/18 14:46 Urine Protein 2+ (NEGATIVE) 05/28/18 14:46 Urine Glucose (UA) 4+ (NEGATIVE) 05/28/18 14:46 Urine Ketones 2+ (NEGATIVE) 05/28/18 14:46 Urine Occult Blood 1+ (NEGATIVE) 05/28/18 14:46 Urine Nitrite Negative (NEGATIVE) 05/28/18 14:46 Urine Bilirubin Negative (NEGATIVE) 05/28/18 14:46 Urine Urobilinogen Normal (NORMAL) 05/28/18 14:46 Ur Leukocyte Esterase Negative (NEGATIVE) 05/28/18 14:46 Urine RBC 0-2 /HPF (NONE SEEN) 05/28/18 14:46 Urine WBC 0-2 /HPF (NONE SEEN) 05/28/18 14:46 Ur Squamous Epith Cells Few /HPF (NEGATIVE) 05/28/18 14:46 Urine Bacteria Trace /HPF (NEGATIVE) 05/28/18 14:46 Urine Mucus Few /HPF (NEGATIVE) 05/28/18 14:46 Ur Culture Indicated? No/not indicated 05/28/18 14:46 Stool Description 30g liquid brown 05/31/18 11:48 Stl Occult Blood (IFOB) Negative (NEGATIVE) 05/31/18 11:48 Acetone, Semi-Quant Small (NEGATIVE) H 05/28/18 11:45 Blood Type O POSITIVE 05/31/18 09:53 Antibody Screen Negative 05/31/18 09:53 Crossmatch See Detail 05/31/18 09:53 XRAY XRAY Interpreted by: Radiologist XRAY Findings: REPORT NOTED. Diagnosis Discharge Problem: Hyperglycemia
[2018-05-28 12:14] LABS: SERUM ACETONE SMALL (NEGATIVE)
[2018-05-28 12:15] LABS: BLOOD UREA NITROGEN 73 mg/dL (7-18); CALCIUM 9.5 mg/dL (8.5-10.1); CARBON DIOXIDE 23.7 mmol/L (21-32); CHLORIDE 94 mmol/L (98-107); CREATININE 3.33 mg/dL (0.70-1.30); SODIUM 132 mmol/L (136-145); eGFR NON BLACK RACES 20 (>60)
[2018-05-28 12:16] LABS: ALANINE AMINOTRANSFERASE 27 Units/L (12-78); ALBUMIN 3.3 g/dL (3.4-5.0); ALKALINE PHOSPHATASE 186 Units/L (46-116); ASPARTATE AMINO TRANSFERASE 17 Units/L (15-37); COR CA(FOR HYPOALB) 10.1 mg/dL (8.5-10.1); TOTAL PROTEIN 7.7 g/dL (6.4-8.2)
[2018-05-28 12:28] LABS: BASOPHILS % (AUTO) 0.2 % (0.2-1.0); HEMATOCRIT 31.4 % (42.0-54.0); HEMOGLOBIN 9.4 g/dL (13.5-18.0); LYMPHOCYTES # (AUTO) 1.1 X10^3/uL (1.3-2.9); LYMPHOCYTES % (AUTO) 10.8 % (21.0-51.0); MEAN CORPUSCULAR HEMOGLOBIN 18.5 pg (27.0-34.0); MEAN CORPUSCULAR VOLUME 61.7 fL (80.0-100.0); MEAN PLATELET VOLUME 9.7 fL (7.4-11.0); MONOCYTES # (AUTO) 0.4 x10^3/uL (0.3-0.8); NEUTROPHILS # (AUTO) 8.7 x10^3/uL (2.2-4.8); PLATELET COUNT 198 X10^3/uL (150.0-450.0); RED BLOOD COUNT 5.08 X10^6/uL (4.7-6.0); RED CELL DISTRIBUTION WIDTH 16.1 % (11.6-16.5); WHITE BLOOD COUNT 10.2 X10^3/uL (3.6-10.0)
[2018-05-28 12:30] LABS: ANISOCYTOSIS SLIGHT; HYPOCHROMASIA 3+; MICROCYTOSIS 2+; PLATELET MORPHOLOGY COMMENT NORMAL (NORMAL)
[2018-05-28 12:31] LABS: COR NA(FOR HYPERGLY) 155 mmol/L (136-145)
[2018-05-28 14:18] LABS: ABG BASE EXCESS -3.8 mmol/L (-2.0-2.0); ABG HCO3 21.5 mmol/L (22-26)
[2018-05-28] MEDS ORDERED: HumuLIN R IV ONE ×2 (14:46→19:45)
[2018-05-28] MEDS ORDERED: HumuLIN R ONE ×2 (14:50→19:31)
[2018-05-28 15:04] LABS: BILIRUBIN,URINE NEGATIVE (NEGATIVE); BLOOD/HEMOGLOBIN,URINE 1+ (NEGATIVE); GLUCOSE, URINE 4+ (NEGATIVE); KETONES,URINE 2+ (NEGATIVE); LEUKOCYTE ESTERASE ,URINE NEGATIVE (NEGATIVE); NITRITES,URINE NEGATIVE (NEGATIVE); PROTEIN,URINE 2+ (NEGATIVE); UROBILINOGEN,URINE NORMAL (NORMAL)
[2018-05-28 15:12] LABS: APPEARANCE,URINE CLEAR (CLEAR); BACTERIA,URINE TRACE /HPF (NEGATIVE); COLOR,URINE YELLOW (YELLOW); RBC,URINE 0-2 /HPF (NONE SEEN); SQUAMOUS EPITHELIAL CELL,UR FEW /HPF (NEGATIVE)
[2018-05-28 15:13] LABS: MUCUS,URINE FEW /HPF (NEGATIVE)
[2018-05-28 15:21] LABS: AMYLASE 60 Units/L (25-115); CALCIUM 8.6 mg/dL (8.5-10.1); LIPASE 227 Units/L (73-393); MAGNESIUM 3.4 mg/dL (1.7-2.9); PHOSPHORUS 6.4 mg/dL (2.6-4.7)
[2018-05-28 15:34] LABS: HEMOGLOBIN A1C > 16.0 %
[2018-05-28 15:38] LABS: ALBUMIN 3.1 g/dL (3.4-5.0); CALCIUM 8.6 mg/dL (8.5-10.1); CARBON DIOXIDE 18.4 mmol/L (21-32); COR CA(FOR HYPOALB) 9.3 mg/dL (8.5-10.1); CREATININE 2.93 mg/dL (0.70-1.30)
[2018-05-28 17:09] VITALS: BMI 23.8
[2018-05-28] MEDS ORDERED: D50W ABBOJECT SYR IV PRN (17:15)
[2018-05-28] MEDS: NS 1000 ML 1,000 ML IV SCH ×2 (17:40→18:10)
[2018-05-28 19:42] LABS: ALBUMIN 3.1 g/dL (3.4-5.0); CARBON DIOXIDE 25.3 mmol/L (21-32); COR CA(FOR HYPOALB) 9.7 mg/dL (8.5-10.1); CREATININE 2.88 mg/dL (0.70-1.30)
[2018-05-28] MEDS: HumuLIN R SUBCUT ONE ×2 (19:46→19:49)
[2018-05-28] MEDS ORDERED: SNACK - Diabetic Appropriate PO SCH (20:00)
[2018-05-28] MEDS: LR 1000 ML IV 1,000 ML IV SCH (21:22)
[2018-05-28 23:40] LABS: ALBUMIN 2.9 g/dL (3.4-5.0); CALCIUM 8.9 mg/dL (8.5-10.1); CARBON DIOXIDE 28.1 mmol/L (21-32); COR CA(FOR HYPOALB) 9.8 mg/dL (8.5-10.1); CREATININE 2.32 mg/dL (0.70-1.30); TOTAL PROTEIN 6.5 g/dL (6.4-8.2)
[2018-05-29] MEDS: LR 1000 ML IV 1,000 ML IV SCH ×2 (00:40→06:48)
[2018-05-29] MEDS ORDERED: HumuLIN R IV ONE ×5 (02:50→09:30)
[2018-05-29] MEDS ORDERED: HumuLIN R ONE (02:51)
[2018-05-29 05:37] LABS: BASOPHILS % (AUTO) 0.3 % (0.2-1.0); EOSINOPHILS % (AUTO) 0.1 % (0.9-2.9); HEMATOCRIT 26.9 % (42.0-54.0); HEMOGLOBIN 8.5 g/dL (13.5-18.0); LYMPHOCYTES # (AUTO) 1.8 X10^3/uL (1.3-2.9); LYMPHOCYTES % (AUTO) 16.3 % (21.0-51.0); MEAN CORPUSCULAR HEMOGLOBIN 18.2 pg (27.0-34.0); MEAN CORPUSCULAR HGB CONC 31.5 g/dL (33.0-35.0); MEAN CORPUSCULAR VOLUME 57.7 fL (80.0-100.0); MEAN PLATELET VOLUME 8.7 fL (7.4-11.0); MONOCYTES # (AUTO) 0.8 x10^3/uL (0.3-0.8); MONOCYTES % (AUTO) 7.2 % (0.0-13.0); NEUTROPHILS # (AUTO) 8.5 x10^3/uL (2.2-4.8); NEUTROPHILS % (AUTO) 76.1 % (42.0-75.0); PLATELET COUNT 186 X10^3/uL (150.0-450.0); RED BLOOD COUNT 4.67 X10^6/uL (4.7-6.0); RED CELL DISTRIBUTION WIDTH 15.8 % (11.6-16.5); WHITE BLOOD COUNT 11.2 X10^3/uL (3.6-10.0)
[2018-05-29 06:01] LABS: ANISOCYTOSIS SLIGHT; HYPOCHROMASIA 1+; PLATELET MORPHOLOGY COMMENT NORMAL (NORMAL); POIKILOCYTOSIS SLIGHT
[2018-05-29 06:02] LABS: MICROCYTOSIS 1+; OVALOCYTES SLIGHT
[2018-05-29 06:03] LABS: ALANINE AMINOTRANSFERASE 24 Units/L (12-78); ALBUMIN 2.9 g/dL (3.4-5.0); ALKALINE PHOSPHATASE 132 Units/L (46-116); ASPARTATE AMINO TRANSFERASE 18 Units/L (15-37); BLOOD UREA NITROGEN 50 mg/dL (7-18); CALCIUM 8.8 mg/dL (8.5-10.1); CARBON DIOXIDE 27.1 mmol/L (21-32); COR CA(FOR HYPOALB) 9.7 mg/dL (8.5-10.1); TOTAL PROTEIN 6.5 g/dL (6.4-8.2); eGFR NON BLACK RACES 38 (>60)
[2018-05-29 06:05] LABS: SODIUM 155 mmol/L (136-145)
[2018-05-29 06:06] LABS: CHLORIDE 117 mmol/L (98-107)
--- NOTE | 2018-05-29 06:31 | RAD ---
Examination: AP chest History: Hyperglycemia Findings: Normal heart size with clear left chest. Minimal suspect infiltrate adjacent to the right lower cardiac margin. The right upper lung is clear. There is no evidence for pleural effusion. Impression: Suspicious appearance for small infiltrate medial right lung base. See above. Standard PA and lateral views would be helpful to confirm. Reported By:
[2018-05-29] MEDS ORDERED: NS 1/2 1000 ML IV 1,000 ML IV ONE ×3 (06:48→21:44)
[2018-05-29] MEDS: NS 1/2 1000 ML IV 1,000 ML IV SCH ×4 (06:48→23:21)
[2018-05-29] MEDS: ACTOS PO SCH (10:49)
[2018-05-29] MEDS: JANUVIA PO SCH (10:49)
[2018-05-29] MEDS: ZESTRIL TAB 40 MG PO SCH (10:49)
[2018-05-29] MEDS: ASPIRIN 81 MG CHEWTAB PO SCH (10:49)
[2018-05-29] MEDS: COREG TAB 25 MG PO SCH ×2 (10:50→20:17)
[2018-05-29] MEDS: PLAVIX PO SCH (10:50)
[2018-05-29] MEDS: NORVASC TAB 10 MG PO SCH (10:50)
--- NOTE | 2018-05-29 11:36 | RAD ---
Examination: Abdomen with PA chest, four views History: Constipation, poor appetite Comparison reference 05/26/2018 Findings: PA chest demonstrates normal heart size and clear left chest. There is an area of infiltrate or atelectasis in the right lower lung. The additional supine and semi-erect views of the abdomen were obtained. There is slight distention of scattered segments of small bowel and colon. The appearance does not suggest mechanical obstruction. No visceral enlargement, ascites or pathologic calcification identified. Impression: 1. Small focus of infiltrate or atelectasis in the right lower lung. 2. Mild nonobstructive intestinal distention. 3. Full upright views of the abdomen were apparently not obtained. This limits confident exclusion of pneumoperitoneum. Reported By:
[2018-05-29] MEDS: HumuLIN R SUBCUT PRN ×3 (11:39→21:00)
[2018-05-29] MEDS: ACARBOSE 100 MG PO SCH ×2 (13:24→22:00)
[2018-05-29] MEDS: SNACK - Diabetic Appropriate PO SCH (20:00)
[2018-05-30] MEDS ORDERED: NS 1/2 1000 ML IV 1,000 ML IV ONE ×3 (04:40→21:06)
[2018-05-30 05:45] LABS: BASOPHILS % (AUTO) 0.1 % (0.2-1.0); EOSINOPHILS % (AUTO) 0.2 % (0.9-2.9); HEMATOCRIT 22.3 % (42.0-54.0); HEMOGLOBIN 7.1 g/dL (13.5-18.0); LYMPHOCYTES # (AUTO) 1.9 X10^3/uL (1.3-2.9); LYMPHOCYTES % (AUTO) 26.9 % (21.0-51.0); MEAN CORPUSCULAR HEMOGLOBIN 18.5 pg (27.0-34.0); MEAN CORPUSCULAR HGB CONC 31.9 g/dL (33.0-35.0); MEAN CORPUSCULAR VOLUME 57.9 fL (80.0-100.0); MEAN PLATELET VOLUME 8.8 fL (7.4-11.0); MONOCYTES # (AUTO) 0.4 x10^3/uL (0.3-0.8); MONOCYTES % (AUTO) 5.9 % (0.0-13.0); NEUTROPHILS # (AUTO) 4.6 x10^3/uL (2.2-4.8); NEUTROPHILS % (AUTO) 66.9 % (42.0-75.0); PLATELET COUNT 145 X10^3/uL (150.0-450.0); RED BLOOD COUNT 3.85 X10^6/uL (4.7-6.0); RED CELL DISTRIBUTION WIDTH 15.3 % (11.6-16.5); WHITE BLOOD COUNT 6.9 X10^3/uL (3.6-10.0)
[2018-05-30 05:51] LABS: ALBUMIN 2.3 g/dL (3.4-5.0); CALCIUM 7.9 mg/dL (8.5-10.1); CARBON DIOXIDE 23.6 mmol/L (21-32); COR CA(FOR HYPOALB) 9.3 mg/dL (8.5-10.1); CREATININE 1.71 mg/dL (0.70-1.30); TOTAL PROTEIN 5.4 g/dL (6.4-8.2)
[2018-05-30] MEDS: ACARBOSE 100 MG PO SCH ×3 (05:58→21:02)
[2018-05-30 06:01] LABS: ANISOCYTOSIS 1+; HYPOCHROMASIA 1+; MICROCYTOSIS 1+; PLATELET MORPHOLOGY COMMENT NORMAL (NORMAL); POIKILOCYTOSIS 1+
[2018-05-30 06:02] LABS: OVALOCYTES 1+
[2018-05-30] MEDS: ACTOS PO SCH (09:03)
[2018-05-30] MEDS: JANUVIA PO SCH (09:03)
[2018-05-30] MEDS: ZESTRIL TAB 40 MG PO SCH (09:03)
[2018-05-30] MEDS: COREG TAB 25 MG PO SCH ×2 (09:04→20:40)
[2018-05-30] MEDS: ASPIRIN 81 MG CHEWTAB PO SCH (09:04)
[2018-05-30] MEDS: NORVASC TAB 10 MG PO SCH (09:04)
[2018-05-30] MEDS: PLAVIX PO SCH (09:05)
[2018-05-30] MEDS: NS 1/2 1000 ML IV 1,000 ML IV SCH ×3 (09:06→21:05)
--- NOTE | 2018-05-30 13:28 | RAD ---
Examination: KUB History: Abdominal pain Comparison reference 05/29/2018 Findings: The intestinal gas pattern is now normal. There is no evidence for obstruction or ileus. No definite ascites, mass or pathologic calcification. Impression: No definite abnormality identified. Reported By:
[2018-05-30] MEDS: HumuLIN R SUBCUT PRN ×2 (17:37→21:03)
[2018-05-30] MEDS: SNACK - Diabetic Appropriate PO SCH (20:26)
[2018-05-31] MEDS ORDERED: NS 1/2 1000 ML IV 1,000 ML IV ONE ×2 (04:10→19:51)
[2018-05-31] MEDS: NS 1/2 1000 ML IV 1,000 ML IV SCH ×2 (04:10→20:21)
[2018-05-31] MEDS: ACARBOSE 100 MG PO SCH ×3 (05:37→22:02)
[2018-05-31] MEDS: HumuLIN R SUBCUT PRN ×4 (05:37→21:39)
[2018-05-31 05:39] LABS: BASOPHILS % (AUTO) 0.1 % (0.2-1.0); EOSINOPHILS % (AUTO) 0.4 % (0.9-2.9); HEMATOCRIT 20.9 % (42.0-54.0); MEAN CORPUSCULAR HEMOGLOBIN 18.6 pg (27.0-34.0); MEAN CORPUSCULAR HGB CONC 32.3 g/dL (33.0-35.0); MEAN CORPUSCULAR VOLUME 57.6 fL (80.0-100.0); MEAN PLATELET VOLUME 9.5 fL (7.4-11.0); MONOCYTES # (AUTO) 0.4 x10^3/uL (0.3-0.8); MONOCYTES % (AUTO) 6.4 % (0.0-13.0); NEUTROPHILS # (AUTO) 3.7 x10^3/uL (2.2-4.8); NEUTROPHILS % (AUTO) 60.1 % (42.0-75.0); PLATELET COUNT 129 X10^3/uL (150.0-450.0); RED BLOOD COUNT 3.63 X10^6/uL (4.7-6.0); RED CELL DISTRIBUTION WIDTH 15.3 % (11.6-16.5); WHITE BLOOD COUNT 6.1 X10^3/uL (3.6-10.0)
[2018-05-31 05:50] LABS: ALBUMIN 2.1 g/dL (3.4-5.0); CALCIUM 7.6 mg/dL (8.5-10.1); CARBON DIOXIDE 24.7 mmol/L (21-32); COR CA(FOR HYPOALB) 9.1 mg/dL (8.5-10.1); CREATININE 1.52 mg/dL (0.70-1.30)
[2018-05-31 06:10] LABS: HEMOGLOBIN 6.8 g/dL (13.5-18.0)
[2018-05-31 06:11] LABS: PLATELET MORPHOLOGY COMMENT NORMAL (NORMAL)
[2018-05-31 06:12] LABS: ANISOCYTOSIS 1+; HYPOCHROMASIA 2+; MICROCYTOSIS 2+; OVALOCYTES PRESENT; POIKILOCYTOSIS 1+
[2018-05-31] MEDS: PLAVIX PO SCH (09:06)
[2018-05-31] MEDS: COREG TAB 25 MG PO SCH ×2 (09:06→20:21)
[2018-05-31] MEDS: JANUVIA PO SCH (09:06)
[2018-05-31] MEDS: ACTOS PO SCH (09:07)
[2018-05-31] MEDS: ZESTRIL TAB 40 MG PO SCH (09:07)
[2018-05-31] MEDS: ASPIRIN 81 MG CHEWTAB PO SCH (09:07)
[2018-05-31] MEDS: NORVASC TAB 10 MG PO SCH (09:12)
[2018-05-31] MEDS ORDERED: NS 500 ML IV 500 ML IV SCH ×2 (12:00)
[2018-05-31 20:04] LABS: HEMATOCRIT 32.7 % (42.0-54.0); HEMOGLOBIN 10.8 g/dL (13.5-18.0)
[2018-05-31] MEDS: SNACK - Diabetic Appropriate PO SCH (20:22)
[2018-06-01] MEDS: NS 1/2 1000 ML IV 1,000 ML IV SCH ×2 (01:52→05:51)
[2018-06-01] MEDS: ACARBOSE 100 MG PO SCH (05:29)
[2018-06-01 05:42] LABS: BASOPHILS % (AUTO) 0.2 % (0.2-1.0); EOSINOPHILS # (AUTO) 0.1 x10^3/uL (0.0-0.2); EOSINOPHILS % (AUTO) 0.9 % (0.9-2.9); HEMOGLOBIN 9.9 g/dL (13.5-18.0); LYMPHOCYTES # (AUTO) 1.3 X10^3/uL (1.3-2.9); LYMPHOCYTES % (AUTO) 23.5 % (21.0-51.0); MEAN CORPUSCULAR HEMOGLOBIN 20.6 pg (27.0-34.0); MEAN CORPUSCULAR VOLUME 62.4 fL (80.0-100.0); MEAN PLATELET VOLUME 8.6 fL (7.4-11.0); MONOCYTES # (AUTO) 0.4 x10^3/uL (0.3-0.8); MONOCYTES % (AUTO) 6.4 % (0.0-13.0); NEUTROPHILS # (AUTO) 3.8 x10^3/uL (2.2-4.8); PLATELET COUNT 118 X10^3/uL (150.0-450.0); RED BLOOD COUNT 4.81 X10^6/uL (4.7-6.0); RED CELL DISTRIBUTION WIDTH 21.1 % (11.6-16.5); WHITE BLOOD COUNT 5.6 X10^3/uL (3.6-10.0)
[2018-06-01] MEDS ORDERED: NS 1/2 1000 ML IV 1,000 ML IV ONE (05:47)
[2018-06-01 05:53] LABS: CALCIUM 7.9 mg/dL (8.5-10.1); CARBON DIOXIDE 24.2 mmol/L (21-32); CREATININE 1.58 mg/dL (0.70-1.30)
[2018-06-01 06:15] LABS: PLATELET MORPHOLOGY COMMENT NORMAL (NORMAL)
[2018-06-01 06:16] LABS: ANISOCYTOSIS 1+; HYPOCHROMASIA 2+; MICROCYTOSIS 2+; OVALOCYTES PRESENT; POIKILOCYTOSIS 1+
[2018-06-01] MEDS: ZESTRIL TAB 40 MG PO SCH (08:24)
[2018-06-01] MEDS: JANUVIA PO SCH (08:25)
[2018-06-01] MEDS: ASPIRIN 81 MG CHEWTAB PO SCH (08:25)
[2018-06-01] MEDS: COREG TAB 25 MG PO SCH (08:25)
[2018-06-01] MEDS: PLAVIX PO SCH (08:25)
[2018-06-01] MEDS: NORVASC TAB 10 MG PO SCH (08:25)
[2018-06-01] MEDS: ACTOS PO SCH (08:25)
[2018-06-01 10:17] VITALS: BP 177/86
== END 2018-06-01 10:48 | DRG 638 ==
LOC: ER 11:17 → ICU 15:17 → MED/SURG 05-29 14:30
PROVIDERS: ADMIT Obstetrics & Gynecology Obstetrics; ATTEND Obstetrics & Gynecology Obstetrics
CPT/HCPCS: 36415; 36430; 36600; 51702; 71010; 71045; 74000; 74018; 74022; 80048; 80053; 81001; 82009; 82150; 82270; 82310; 82607; 82728; 82746; 82803; 82947; 83036; 83540; 83690; 83735; 84100; 84466; 85014; 85018; 85025; 86850; 86900; 86901; 86922; 93005; 93010; 96365; 96367; 96374; 96375; 97162; 99283; 99284; A4216; A4222; P9016; J1815; J7030; J7040; J7050; J7120

== ENCOUNTER 2019-01-17 15:55 | Inpatient (IN) ==
[2019-01-17] MEDS ORDERED: NS 1000 ML 1,000 ML IV ONE ×2 (16:23→18:37)
[2019-01-17] MEDS ORDERED: NS 1000 ML 1,000 ML ONE ×2 (16:25→18:37)
--- NOTE | 2019-01-17 16:50 | DR.GENAD ---
HPI Time Seen Time Seen by Provider: 01/17/19 16:22 PCP Primary Care Physician: DR TAPIA Complaint/Symptoms Chief Complaint:: PT WAS BROUGHT OVER TO ER BY [facility] AFTER ABNORMAL LAB RESULTS OF POTASSIUM OF 6.5 WELL ELEVATED BUN AND CREATININE Source History Provided: Skilled Nursing Mode of Arrival Mode of Arrival: Wheelchair Timing Onset of Chief Complaint: 01/17/19 PMH PMH Past Medical History: Yes Past Medical History: Anemia, Coronary Artery Disease, CVA, Diabetes, Dyslipidemia, GERD, Hypertension and Kidney Stones Past Surgical History: No Family History History of Family Medical Conditions: Yes Family Medical History: Diabetes Mellitus Social History Does patient currently use any type of tobacco product: No Have you used tobacco products in the last 12 months: No Type of Tobacco Use: None Does any household member use tobacco: No Alcohol Use: None Do you use any recreational Drugs:: No Lives With: Other Lives Where: Skilled Nursing infectious screening In the last 2 months have you had wt loss of >10#?: NO Have you had fever, night sweats or hemotysis?: No Have you traveled outside the country in the last 6 months?: No Isolation: Standard PE Vital Signs Vitals: Temperature 97.8 F Pulse Rate 70 Respiratory Rate 18 Blood Pressure [Right Arm] 132/71 Blood Pressure [Left Arm] 169/88 Blood Pressure 103/57 O2 Sat by Pulse Oximetry 98 ROR Labs Reviewed Laboratory Results Reviewed?: Yes Result Diagrams: 01/17/19 16:07 Laboratory: Potassium 5.6 mmol/L (3.5-5.1) H 01/17/19 16:07 Specimen Type Clean catch urine 01/17/19 18:34 Urine Color Yellow (YELLOW) 01/17/19 18:34 Urine Appearance Hazy (CLEAR) 01/17/19 18:34 Urine pH 6.0 (5.0 - 8.0) 01/17/19 18:34 Ur Specific [place] 1.015 (1.000-1.030) 01/17/19 18:34 Urine Protein 2+ (NEGATIVE) 01/17/19 18:34 Urine Glucose (UA) 4+ (NEGATIVE) 01/17/19 18:34 Urine Ketones Negative (NEGATIVE) 01/17/19 18:34 Urine Occult Blood 2+ (NEGATIVE) 01/17/19 18:34 Urine Nitrite Positive (NEGATIVE) 01/17/19 18:34 Urine Bilirubin Negative (NEGATIVE) 01/17/19 18:34 Urine Urobilinogen Normal (NORMAL) 01/17/19 18:34 Ur Leukocyte Esterase 3+ (NEGATIVE) 01/17/19 18:34 Urine RBC 10-20 /HPF (NONE SEEN) 01/17/19 18:34 Urine WBC 20-30 /HPF (NONE SEEN) 01/17/19 18:34 Ur Squamous Epith Cells Rare /HPF (NEGATIVE) 01/17/19 18:34 Urine Bacteria 3+ /HPF (NEGATIVE) 01/17/19 18:34 Ur Culture Indicated? Yes/culture set up 01/17/19 18:34 Opioid Opioid Risk Tool Total: 0 Total Score Risk Category: Low Risk Copyright: Fredo FRASER predicting aberrant behaviors Instructions Forms: Excuse From Work
[2019-01-17] MEDS ORDERED: NS 100 ML IV + SPIKE MINIBAG* 100 ML ONE (18:44)
[2019-01-17] MEDS ORDERED: INVANZ INJ 1 GM VIAL ONE (18:44)
[2019-01-17 18:46] LABS: BILIRUBIN,URINE NEGATIVE (NEGATIVE); BLOOD/HEMOGLOBIN,URINE 2+ (NEGATIVE); GLUCOSE, URINE 4+ (NEGATIVE); KETONES,URINE NEGATIVE (NEGATIVE); LEUKOCYTE ESTERASE ,URINE 3+ (NEGATIVE); NITRITES,URINE POSITIVE (NEGATIVE); PROTEIN,URINE 2+ (NEGATIVE); UROBILINOGEN,URINE NORMAL (NORMAL)
[2019-01-17] MEDS: INVANZ INJ 1 GM VIAL 1 GM in NS 100 ML IV + SPIKE MINIBAG* 100 ML IV SCH (18:51)
[2019-01-17 18:55] LABS: APPEARANCE,URINE HAZY (CLEAR); BACTERIA,URINE 3+ /HPF (NEGATIVE); COLOR,URINE YELLOW (YELLOW); SQUAMOUS EPITHELIAL CELL,UR RARE /HPF (NEGATIVE)
[2019-01-17] MEDS ORDERED: KAYEXALATE SUSP PO ONE (19:46)
[2019-01-17] MEDS ORDERED: METFORMIN 500 MG PO SCH (21:00)
[2019-01-17 21:21] VITALS: BMI 26.9
[2019-01-17] MEDS: SNACK - Diabetic Appropriate PO SCH (21:36)
[2019-01-17] MEDS: NS 1000 ML 1,000 ML IV SCH (21:36)
[2019-01-17] MEDS: COREG TAB 25 MG PO SCH (21:36)
[2019-01-17] MEDS: HumuLIN R SC SCH (21:37)
[2019-01-18] MEDS: ACARBOSE 100 MG PO SCH ×4 (01:16→21:27)
[2019-01-18] MEDS: NS 1000 ML 1,000 ML IV SCH ×4 (03:01→21:26)
[2019-01-18] MEDS: HumuLIN R SC SCH ×2 (05:37→15:30)
[2019-01-18 06:08] LABS: BASOPHILS % (AUTO) 0.1 % (0.2-1.0); EOSINOPHILS # (AUTO) 0.1 x10^3/uL (0.0-0.2); EOSINOPHILS % (AUTO) 1.1 % (0.9-2.9); HEMATOCRIT 28.3 % (42.0-54.0); HEMOGLOBIN 9.2 g/dL (13.5-18.0); LYMPHOCYTES # (AUTO) 1.6 X10^3/uL (1.3-2.9); LYMPHOCYTES % (AUTO) 23.1 % (21.0-51.0); MEAN CORPUSCULAR HEMOGLOBIN 19.6 pg (27.0-34.0); MEAN CORPUSCULAR HGB CONC 32.4 g/dL (33.0-35.0); MEAN CORPUSCULAR VOLUME 60.4 fL (80.0-100.0); MEAN PLATELET VOLUME 7.2 fL (7.4-11.0); MONOCYTES # (AUTO) 0.5 x10^3/uL (0.3-0.8); MONOCYTES % (AUTO) 7.7 % (0.0-13.0); NEUTROPHILS # (AUTO) 4.8 x10^3/uL (2.2-4.8); PLATELET COUNT 268 X10^3/uL (150.0-450.0); RED BLOOD COUNT 4.68 X10^6/uL (4.7-6.0); RED CELL DISTRIBUTION WIDTH 15.7 % (11.6-16.5); WHITE BLOOD COUNT 7.1 X10^3/uL (3.6-10.0)
[2019-01-18 06:19] LABS: ALBUMIN 2.9 g/dL (3.4-5.0); ALKALINE PHOSPHATASE 70 Units/L (46-116); ASPARTATE AMINO TRANSFERASE 14 Units/L (15-37); BLOOD UREA NITROGEN 59 mg/dL (7-18); CALCIUM 8.9 mg/dL (8.5-10.1); CARBON DIOXIDE 23.5 mmol/L (21-32); CHLORIDE 105 mmol/L (98-107); COR CA(FOR HYPOALB) 9.8 mg/dL (8.5-10.1); CREATININE 5.03 mg/dL (0.70-1.30); SODIUM 138 mmol/L (136-145); TOTAL PROTEIN 6.3 g/dL (6.4-8.2); eGFR NON BLACK RACES 12 (>60)
[2019-01-18 06:32] LABS: ALANINE AMINOTRANSFERASE 15 Units/L (12-78)
[2019-01-18 06:34] LABS: HYPOCHROMASIA 1+; PLATELET MORPHOLOGY COMMENT NORMAL (NORMAL)
[2019-01-18 06:35] LABS: MICROCYTOSIS SLIGHT
[2019-01-18] MEDS ORDERED: PHARMACY CONSULT - DOSE _____ XX SCH (08:00)
[2019-01-18] MEDS ORDERED: ZESTRIL TAB 20 MG ONE (08:30)
[2019-01-18] MEDS: ZESTRIL TAB 20 MG PO SCH (08:53)
[2019-01-18] MEDS: JANUVIA PO SCH (08:53)
[2019-01-18] MEDS: TAB-A-VITE PO SCH (08:55)
[2019-01-18] MEDS: ZIAC 5/6.25 MG PO SCH (08:55)
[2019-01-18] MEDS: ACTOS PO SCH (08:55)
[2019-01-18] MEDS: ASPIRIN 81 MG CHEWTAB PO SCH (08:56)
[2019-01-18] MEDS: COREG TAB 25 MG PO SCH ×2 (08:56→21:26)
[2019-01-18] MEDS: NORVASC TAB 5 MG PO SCH (08:56)
[2019-01-18] MEDS: PLAVIX PO SCH (08:57)
[2019-01-18] MEDS ORDERED: PROCRIT or EPOGEN SC SCH (09:00)
[2019-01-18] MEDS: INVANZ INJ 1 GM VIAL 1 GM in NS 100 ML IV + SPIKE MINIBAG* 100 ML IV SCH (09:10)
[2019-01-18] MEDS ORDERED: NS 1000 ML 1,000 ML IV ONE (09:57)
[2019-01-18] MEDS: EMPAGLIFLOZIN 10 MG PO SCH (13:43)
[2019-01-18] MEDS ORDERED: HumuLIN R SC PRN (17:08)
[2019-01-18] MEDS ORDERED: GLUCOPHAGE PO SCH (21:00)
[2019-01-18] MEDS: SNACK - Diabetic Appropriate PO SCH (21:27)
[2019-01-19] MEDS: NS 1000 ML 1,000 ML IV SCH ×3 (03:09→21:00)
[2019-01-19 05:20] LABS: BASOPHILS % (AUTO) 0.5 % (0.2-1.0); EOSINOPHILS # (AUTO) 0.1 x10^3/uL (0.0-0.2); HEMATOCRIT 29.2 % (42.0-54.0); HEMOGLOBIN 9.2 g/dL (13.5-18.0); LYMPHOCYTES # (AUTO) 1.4 X10^3/uL (1.3-2.9); LYMPHOCYTES % (AUTO) 24.3 % (21.0-51.0); MEAN CORPUSCULAR HEMOGLOBIN 19.5 pg (27.0-34.0); MEAN CORPUSCULAR HGB CONC 31.5 g/dL (33.0-35.0); MEAN PLATELET VOLUME 8.5 fL (7.4-11.0); MONOCYTES # (AUTO) 0.4 x10^3/uL (0.3-0.8); MONOCYTES % (AUTO) 7.5 % (0.0-13.0); NEUTROPHILS # (AUTO) 3.9 x10^3/uL (2.2-4.8); NEUTROPHILS % (AUTO) 66.7 % (42.0-75.0); PLATELET COUNT 260 X10^3/uL (150.0-450.0); RED BLOOD COUNT 4.71 X10^6/uL (4.7-6.0); RED CELL DISTRIBUTION WIDTH 16.1 % (11.6-16.5); WHITE BLOOD COUNT 5.8 X10^3/uL (3.6-10.0)
[2019-01-19] MEDS: ACARBOSE 100 MG PO SCH ×3 (05:31→21:25)
[2019-01-19 05:41] LABS: ALANINE AMINOTRANSFERASE 16 Units/L (12-78); ALBUMIN 2.8 g/dL (3.4-5.0); ALKALINE PHOSPHATASE 66 Units/L (46-116); ASPARTATE AMINO TRANSFERASE 17 Units/L (15-37); BLOOD UREA NITROGEN 37 mg/dL (7-18); CALCIUM 8.9 mg/dL (8.5-10.1); CARBON DIOXIDE 21.9 mmol/L (21-32); CHLORIDE 109 mmol/L (98-107); COR CA(FOR HYPOALB) 9.9 mg/dL (8.5-10.1); CREATININE 3.16 mg/dL (0.70-1.30); SODIUM 139 mmol/L (136-145); TOTAL PROTEIN 6.2 g/dL (6.4-8.2); eGFR NON BLACK RACES 21 (>60)
[2019-01-19 05:53] LABS: PLATELET MORPHOLOGY COMMENT NORMAL (NORMAL)
[2019-01-19 05:54] LABS: HYPOCHROMASIA 3+; MICROCYTOSIS 2+; OVALOCYTES PRESENT
[2019-01-19] MEDS ORDERED: ZESTRIL TAB 20 MG ONE (09:03)
[2019-01-19] MEDS: COREG TAB 25 MG PO SCH ×2 (09:32→21:25)
[2019-01-19] MEDS: ZIAC 5/6.25 MG PO SCH (09:45)
[2019-01-19] MEDS: INVANZ INJ 1 GM VIAL 1 GM in NS 100 ML IV + SPIKE MINIBAG* 100 ML IV SCH (09:45)
[2019-01-19] MEDS: PLAVIX PO SCH (09:46)
[2019-01-19] MEDS: ZESTRIL TAB 20 MG PO SCH (09:47)
[2019-01-19] MEDS: JANUVIA PO SCH (09:47)
[2019-01-19] MEDS: TAB-A-VITE PO SCH (09:47)
[2019-01-19] MEDS: NORVASC TAB 5 MG PO SCH (09:48)
[2019-01-19] MEDS: ASPIRIN 81 MG CHEWTAB PO SCH (09:48)
[2019-01-19] MEDS: ACTOS PO SCH (09:48)
[2019-01-19] MEDS: EMPAGLIFLOZIN 10 MG PO SCH (10:21)
--- NOTE | 2019-01-19 12:08 | RAD ---
Exam: Chest, single view History: 63-year-old male with suspected congestive heart failure Comparison: Previous chest radiograph from 12/28/[address] from 12/31/2018. Findings: Heart size and pulmonary vasculature are normal. Previously described nodular opacity is again seen in the right infrahilar region. It has not changed significantly in appearance when compared to the previous exam. Patchy opacity developing at the right base may represent increasing atelectasis or developing infiltrate. The left lung is clear. No pleural effusion on either side. Bony thorax is unremarkable. Impression: Persistent nodular opacity is again seen in the right infrahilar region, unchanged in appearance since the previous exams. At this point, actual lung nodule cannot be excluded. In addition patchy opacity developing at the right base may represent progressive atelectasis/infiltrate. Further evaluation with bronchoscopy may be useful. Otherwise repeat imaging, after treatment, is recommended. If this finding persists, consider PET-CT to exclude neoplasm. Reported By:
--- NOTE | 2019-01-19 14:09 | CT ---
CT abdomen and pelvis without contrast Indication: Abdominal pain with fever Comparison: Chest CT on 12/31/2018 Technique: Multiple axial images of the abdomen and pelvis were obtained from the lung bases to the pubic symphysis without the administration of IV contrast. Coronal and sagittal reformatted images were also provided. Dose reduction techniques including automated exposure control (AEC) and adjustment of mA and kV were utilized. Findings: Overall sensitivity in detection of solid organ injury, mass or inflammatory change along with vascular injury or mesenteric hematoma is severely limited given lack of IV contrast administration. The rounded nodular opacity within the right middle lobe is again noted, the nodule measures approximately 2.3 by 1.2 cm on axial image 1 remaining lungs are clear . Given limitations of a noncontrast examination no focal hepatic lesion is identified. The gallbladder, bile ducts, spleen, pancreas and adrenal glands are normal. Neither kidney demonstrates evidence of nephrolithiasis, hydronephrosis or mass. Urinary bladder is diffusely thick walled. Prostate gland is normal. Increased fluid is noted within the rectum and colon. Upper GI tract demonstrates mild fluid distention of several loops of small bowel. No bowel wall thickening or evidence of obstruction. Abdominal aorta is normal in caliber with scattered calcified atherosclerotic disease. Review of bone windows demonstrates no acute osseous abnormality. The appendix is normal. Impression: 1.Increased fluid distention of the small bowel, colon rectum consistent enterocolitis and diarrheal illness. No evidence of mass or obstruction. 2. Circumferential bladder wall thickening is nonspecific; however, correlation urinalysis and patient symptoms is needed to exclude interstitial cystitis. 3. Persistent rounded nodular opacity measuring approximately 2.3 x 1.2 cm within the right middle lobe is indeterminate however not definitely benign. Correlation with contrast-enhanced chest CT is recommended. If patient is unable to receive IV contrast consider a PET-CT for further evaluation and exclusion of underlying malignancy. IMPRESSION: Reported By:
[2019-01-19] MEDS: SNACK - Diabetic Appropriate PO SCH (20:15)
[2019-01-20 05:13] LABS: BASOPHILS % (AUTO) 0.3 % (0.2-1.0); EOSINOPHILS # (AUTO) 0.1 x10^3/uL (0.0-0.2); HEMATOCRIT 29.9 % (42.0-54.0); HEMOGLOBIN 9.7 g/dL (13.5-18.0); LYMPHOCYTES % (AUTO) 32.8 % (21.0-51.0); MEAN CORPUSCULAR HEMOGLOBIN 19.6 pg (27.0-34.0); MEAN CORPUSCULAR HGB CONC 32.3 g/dL (33.0-35.0); MEAN CORPUSCULAR VOLUME 60.8 fL (80.0-100.0); MEAN PLATELET VOLUME 7.3 fL (7.4-11.0); MONOCYTES # (AUTO) 0.5 x10^3/uL (0.3-0.8); MONOCYTES % (AUTO) 7.7 % (0.0-13.0); NEUTROPHILS # (AUTO) 3.4 x10^3/uL (2.2-4.8); NEUTROPHILS % (AUTO) 57.2 % (42.0-75.0); PLATELET COUNT 258 X10^3/uL (150.0-450.0); RED BLOOD COUNT 4.91 X10^6/uL (4.7-6.0); RED CELL DISTRIBUTION WIDTH 16.9 % (11.6-16.5)
[2019-01-20 05:21] LABS: ALANINE AMINOTRANSFERASE 14 Units/L (12-78); ALBUMIN 2.8 g/dL (3.4-5.0); ALKALINE PHOSPHATASE 69 Units/L (46-116); ASPARTATE AMINO TRANSFERASE 17 Units/L (15-37); BLOOD UREA NITROGEN 25 mg/dL (7-18); CARBON DIOXIDE 23.1 mmol/L (21-32); CHLORIDE 108 mmol/L (98-107); CREATININE 2.59 mg/dL (0.70-1.30); SODIUM 138 mmol/L (136-145); TOTAL PROTEIN 6.3 g/dL (6.4-8.2); eGFR NON BLACK RACES 27 (>60)
[2019-01-20] MEDS: NS 1000 ML 1,000 ML IV SCH ×4 (05:32→20:16)
[2019-01-20 05:55] LABS: PLATELET MORPHOLOGY COMMENT NORMAL (NORMAL)
[2019-01-20 05:56] LABS: HYPOCHROMASIA 2+; MICROCYTOSIS 2+; OVALOCYTES PRESENT
[2019-01-20] MEDS: ACARBOSE 100 MG PO SCH ×3 (05:59→21:00)
[2019-01-20] MEDS ORDERED: ZESTRIL TAB 20 MG ONE (07:16)
[2019-01-20] MEDS: ACTOS PO SCH (08:49)
[2019-01-20] MEDS: JANUVIA PO SCH (08:49)
[2019-01-20] MEDS: NORVASC TAB 5 MG PO SCH (08:49)
[2019-01-20] MEDS: EMPAGLIFLOZIN 10 MG PO SCH (08:50)
[2019-01-20] MEDS: COREG TAB 25 MG PO SCH ×2 (08:50→20:17)
[2019-01-20] MEDS: ZESTRIL TAB 20 MG PO SCH (08:50)
[2019-01-20] MEDS: TAB-A-VITE PO SCH (08:51)
[2019-01-20] MEDS: ASPIRIN 81 MG CHEWTAB PO SCH (08:51)
[2019-01-20] MEDS: ZIAC 5/6.25 MG PO SCH (08:51)
[2019-01-20] MEDS: INVANZ INJ 1 GM VIAL 1 GM in NS 100 ML IV + SPIKE MINIBAG* 100 ML IV SCH (08:52)
[2019-01-20] MEDS: PLAVIX PO SCH (08:52)
[2019-01-20 19:46] LABS: STOOL FOR WBC NEGATIVE (NEGATIVE)
[2019-01-20] MEDS: SNACK - Diabetic Appropriate PO SCH (20:16)
[2019-01-21] MEDS: ACARBOSE 100 MG PO SCH ×3 (05:27→22:13)
[2019-01-21] MEDS: NS 1000 ML 1,000 ML IV SCH ×3 (05:27→20:41)
[2019-01-21] MEDS ORDERED: ZESTRIL TAB 20 MG ONE (08:12)
[2019-01-21] MEDS: EMPAGLIFLOZIN 10 MG PO SCH (08:42)
[2019-01-21] MEDS: ASPIRIN 81 MG CHEWTAB PO SCH (08:42)
[2019-01-21] MEDS: ZESTRIL TAB 20 MG PO SCH (08:42)
[2019-01-21] MEDS: ACTOS PO SCH (08:42)
[2019-01-21] MEDS: COREG TAB 25 MG PO SCH ×2 (08:42→20:40)
[2019-01-21] MEDS: NORVASC TAB 5 MG PO SCH (08:43)
[2019-01-21] MEDS: JANUVIA PO SCH (08:43)
[2019-01-21] MEDS: PLAVIX PO SCH (08:43)
[2019-01-21] MEDS: INVANZ INJ 1 GM VIAL 1 GM in NS 100 ML IV + SPIKE MINIBAG* 100 ML IV SCH (08:43)
[2019-01-21] MEDS: TAB-A-VITE PO SCH (08:44)
[2019-01-21] MEDS: ZIAC 5/6.25 MG PO SCH (08:44)
[2019-01-21 09:24] LABS: BASOPHILS % (AUTO) 0.4 % (0.2-1.0); EOSINOPHILS # (AUTO) 0.1 x10^3/uL (0.0-0.2); EOSINOPHILS % (AUTO) 1.7 % (0.9-2.9); HEMATOCRIT 31.5 % (42.0-54.0); LYMPHOCYTES # (AUTO) 1.8 X10^3/uL (1.3-2.9); LYMPHOCYTES % (AUTO) 32.7 % (21.0-51.0); MEAN CORPUSCULAR HEMOGLOBIN 19.4 pg (27.0-34.0); MEAN CORPUSCULAR HGB CONC 31.7 g/dL (33.0-35.0); MEAN CORPUSCULAR VOLUME 61.1 fL (80.0-100.0); MEAN PLATELET VOLUME 7.8 fL (7.4-11.0); MONOCYTES # (AUTO) 0.4 x10^3/uL (0.3-0.8); MONOCYTES % (AUTO) 6.5 % (0.0-13.0); NEUTROPHILS # (AUTO) 3.3 x10^3/uL (2.2-4.8); NEUTROPHILS % (AUTO) 58.7 % (42.0-75.0); PLATELET COUNT 248 X10^3/uL (150.0-450.0); RED BLOOD COUNT 5.16 X10^6/uL (4.7-6.0); RED CELL DISTRIBUTION WIDTH 16.4 % (11.6-16.5); WHITE BLOOD COUNT 5.6 X10^3/uL (3.6-10.0)
[2019-01-21 09:34] LABS: ANISOCYTOSIS SLIGHT; HYPOCHROMASIA 3+; MICROCYTOSIS 2+; PLATELET MORPHOLOGY COMMENT NORMAL (NORMAL)
[2019-01-21 09:35] LABS: OVALOCYTES PRESENT
[2019-01-21 09:41] LABS: ALANINE AMINOTRANSFERASE 15 Units/L (12-78); ALBUMIN 2.8 g/dL (3.4-5.0); ALKALINE PHOSPHATASE 73 Units/L (46-116); ASPARTATE AMINO TRANSFERASE 16 Units/L (15-37); BLOOD UREA NITROGEN 22 mg/dL (7-18); CALCIUM 8.7 mg/dL (8.5-10.1); CARBON DIOXIDE 21.9 mmol/L (21-32); CHLORIDE 109 mmol/L (98-107); COR CA(FOR HYPOALB) 9.7 mg/dL (8.5-10.1); CREATININE 2.49 mg/dL (0.70-1.30); SODIUM 141 mmol/L (136-145); TOTAL PROTEIN 6.3 g/dL (6.4-8.2); eGFR NON BLACK RACES 28 (>60)
[2019-01-21] MEDS: SNACK - Diabetic Appropriate PO SCH (20:38)
[2019-01-22] MEDS: NS 1000 ML 1,000 ML IV SCH ×2 (05:00→14:54)
[2019-01-22 05:09] LABS: BASOPHILS % (AUTO) 0.3 % (0.2-1.0); EOSINOPHILS # (AUTO) 0.1 x10^3/uL (0.0-0.2); HEMATOCRIT 30.6 % (42.0-54.0); HEMOGLOBIN 9.8 g/dL (13.5-18.0); LYMPHOCYTES # (AUTO) 1.9 X10^3/uL (1.3-2.9); LYMPHOCYTES % (AUTO) 29.9 % (21.0-51.0); MEAN CORPUSCULAR HEMOGLOBIN 19.6 pg (27.0-34.0); MEAN CORPUSCULAR VOLUME 61.4 fL (80.0-100.0); MEAN PLATELET VOLUME 7.6 fL (7.4-11.0); MONOCYTES # (AUTO) 0.4 x10^3/uL (0.3-0.8); MONOCYTES % (AUTO) 6.3 % (0.0-13.0); NEUTROPHILS # (AUTO) 3.9 x10^3/uL (2.2-4.8); NEUTROPHILS % (AUTO) 61.5 % (42.0-75.0); PLATELET COUNT 238 X10^3/uL (150.0-450.0); RED BLOOD COUNT 4.99 X10^6/uL (4.7-6.0); RED CELL DISTRIBUTION WIDTH 16.6 % (11.6-16.5); WHITE BLOOD COUNT 6.3 X10^3/uL (3.6-10.0)
[2019-01-22 05:19] LABS: ALANINE AMINOTRANSFERASE 15 Units/L (12-78); ALBUMIN 2.9 g/dL (3.4-5.0); ALKALINE PHOSPHATASE 65 Units/L (46-116); ASPARTATE AMINO TRANSFERASE 18 Units/L (15-37); BLOOD UREA NITROGEN 26 mg/dL (7-18); CALCIUM 8.8 mg/dL (8.5-10.1); CARBON DIOXIDE 19.1 mmol/L (21-32); CHLORIDE 110 mmol/L (98-107); COR CA(FOR HYPOALB) 9.7 mg/dL (8.5-10.1); CREATININE 2.07 mg/dL (0.70-1.30); SODIUM 140 mmol/L (136-145); TOTAL PROTEIN 6.3 g/dL (6.4-8.2); eGFR NON BLACK RACES 35 (>60)
[2019-01-22] MEDS: ACARBOSE 100 MG PO SCH ×2 (05:45→14:12)
[2019-01-22 06:30] LABS: ANISOCYTOSIS SLIGHT; HYPOCHROMASIA 3+; MICROCYTOSIS 2+; PLATELET MORPHOLOGY COMMENT NORMAL (NORMAL)
[2019-01-22] MEDS ORDERED: ZESTRIL TAB 20 MG ONE (08:01)
[2019-01-22] MEDS: TAB-A-VITE PO SCH (08:45)
[2019-01-22] MEDS: ZESTRIL TAB 20 MG PO SCH (08:45)
[2019-01-22] MEDS: ACTOS PO SCH (08:45)
[2019-01-22] MEDS: JANUVIA PO SCH (08:47)
[2019-01-22] MEDS: ASPIRIN 81 MG CHEWTAB PO SCH (08:47)
[2019-01-22] MEDS: COREG TAB 25 MG PO SCH (08:47)
[2019-01-22] MEDS: PLAVIX PO SCH (08:47)
[2019-01-22] MEDS: ZIAC 5/6.25 MG PO SCH (08:47)
[2019-01-22] MEDS: NORVASC TAB 5 MG PO SCH (08:47)
[2019-01-22] MEDS: INVANZ INJ 1 GM VIAL 1 GM in NS 100 ML IV + SPIKE MINIBAG* 100 ML IV SCH (08:48)
[2019-01-22] MEDS: EMPAGLIFLOZIN 10 MG PO SCH (08:50)
[2019-01-22 12:05] VITALS: BP 155/81
== END 2019-01-22 16:05 | DRG 641 ==
LOC: ER 15:55 → MED/SURG 19:47
PROVIDERS: ADMIT Internal Medicine; ATTEND Obstetrics & Gynecology Obstetrics
DX: K21.9 Gastro-esophageal reflux disease without esophagitis; N18.9 Chronic kidney disease, unspecified; E78.2 Mixed hyperlipidemia; B96.29 Other Escherichia coli [E. coli] as the cause of diseases classified elsewhere; E87.5 Hyperkalemia; K52.89 Other specified noninfective gastroenteritis and colitis; Z87.898 Personal history of other specified conditions; R26.89 Other abnormalities of gait and mobility; N39.0 Urinary tract infection, site not specified; E11.65 Type 2 diabetes mellitus with hyperglycemia; E86.0 Dehydration; I12.9 Hypertensive chronic kidney disease with stage 1 through stage 4 chronic kidney disease, or unspecified chronic kidney disease; K59.09 Other constipation; I25.10 Atherosclerotic heart disease of native coronary artery without angina pectoris; N17.8 Other acute kidney failure
CPT/HCPCS: 36415; 71010; 71045; 74000; 74018; 74176; 80053; 81001; 82270; 83020; 83021; 83630; 84132; 84153; 85025; 87045; 87086; 87088; 87186; 87449; 87899; 93005; 94760; 96365; 96367; 96374; 97110; 97116; 97162; 97530; 99284; A4222; J0885; J1335; J7030; J7050